=== PATIENT | female | born 1980 | race Caucasian/White ===

== ENCOUNTER 2017-03-01 08:22 | Emergency (ER) | payer MEDICAID, SELFPAY ==
[2017-03-01 08:23] VITALS: BP 123/95; PULSE 78; RESP 16; TEMP 36.8; O2SAT 99; BMI 37.8
--- NOTE | 2017-03-01 08:39 | RAD_ITS ---
STUDY: X-RAY CHEST REASON FOR EXAM: Female, 37 years old. Acute onset of chest pain. TECHNIQUE: Single AP portable view of the chest. COMPARISON: Comparison is made with prior study dated November 28, 2016. FINDINGS: EKG electrodes are seen. The lungs are clear and expanded. There is no demonstrated pleural abnormality. Normal size heart. Normal mediastinum and leslie. Normal visualized pulmonary arteries. Normal visualized aortic arch and descending thoracic aorta. Normal visualized thoracic spine. Normal visualized ribs, clavicles, and shoulders. There is no demonstrated abnormality of the visualized soft tissue structures of the upper abdomen. RAD/Chest 1 View (Portable) IMPRESSION: Normal x-ray examination of the chest. Electronically Signed: Kishor Woods MD at 9:17 EST Tel [phone], Service support ,
--- NOTE | 2017-03-01 08:39 | EKG12_ITS ---
Test Reason : CP Blood Pressure : / mmHG Vent. Rate : 082 BPM Atrial Rate : 082 BPM P-R Int : 156 ms QRS Dur : 086 ms QT Int : 378 ms P-R-T Axes : 028 010 019 degrees QTc Int : 441 ms Normal sinus rhythm Normal ECG Confirmed by YVES EUBANKS ([id number]), medical editor BARBIE ARCOS ([id number]) on 03/06/2017 10:10:35 AM Referred By: SURI/MAIKOL Confirmed By:YVES EUBANKS
[2017-03-01 09:00] LABS: Absolute Lymphocyte Count 2.99 X10^3/ul (0.83-4.51); Absolute Neutrophil Count 4.7 X10^3/uL (2.0-7.7); Basophil# 0.05 X10^3/uL; Basophil% 0.6 % (0-1); Eosinophil# 0.37 X10^3/uL; Eosinophils% 4.2 % (0-5); Hematocrit 43.7 % (37-47); Lymphocyte # 2.99 X10^3/ul (4.0); Lymphocyte % 34.3 % (19-41); Mean Corpuscular Volume 90.7 fL (81-99); Mean Platelet Vol. 10.4 fl (6.2-12.0); Monocyte# 0.55 X10^3/uL; Monocyte% 6.3 % (0-10); Neutrophil # 4.73 X10^3/uL (2.7-7.7); Neutrophil % 54.3 % (47-70); Platelet Count 273 K/mm3 (150-450); RBC Distribution Width CV 13.6 % (11.6-14.6); RBC Distribution Width SD 44.6 fl (35.1-43.9); Red Blood Count 4.82 M/mm3 (4.2-5.4); White Blood Count 8.7 K/mm3 (4.4-11.0)
[2017-03-01 09:01] LABS: POSITIVE COUNT NO; POSITIVE DIFFERENTIAL NO; POSITIVE MORPHOLOGY NO
[2017-03-01 09:11] LABS: Anion Gap 5 (5-15); BUN 10 mg/dL (7-18); BUN/Creat Ratio 13.1 RATIO (10-20); Calcium,Total 8.4 mg/dL (8.5-10.1); Chloride 103 mmol/L (98-107); Creatinine, Serum 0.76 mg/dL (0.55-1.02); EST Glomerular Filtration Rate 92 mL/min (>60); Est Glom Filt Rate - Afr Amer 111 mL/min (>60); Estimated Creatinine Clearance 89.22 ml/min; Glucose 85 mg/dL (70-110); Potassium 3.9 mmol/L (3.5-5.1); Sodium Level 137 mmol/L (136-145)
[2017-03-01 09:28] LABS: D-Dimer Quantitative (DVT/PE) < 0.27 FEU/ug/m (0.27-0.49)
--- NOTE | 2017-03-01 09:55 | ED.DCSUM_ITS ---
- ER Visit Summary Date of Service: 03/01/17 Chief Complaint: [Chest pain] History of Present Illness: The patient is a 37 F [presents with chest pain that started around 6:15 AM. Patient states that she was getting ready for work when the discomfort started. Patient describes a heaviness in her chest and then intermittent sharp stabbing pain that lasts a couple seconds and then returns. Patient went to work but continued to have the symptoms so she presented to the emergency department. Patient currently rates her pain a 3 out of 10. Patient states the pain is worse with deep breath and movement. She denies any injury or lifting. Patient did use her inhaler prior to pain starting states that is atypical activity that she does most mornings due to her history of asthma.] Physical Examination: [HEENT-PERRLA, EOMI. Cranial nerves II through XII grossly intact. TMs clear. Mucous membranes moist. No adenopathy. Cardiovascular-regular rate and rhythm without murmur or ectopy Lungs-clear to auscultation, chest wall stable without crepitus or subcu emphysema. Patient does have tenderness to palpation over left anterior chest wall that seems to reproduce her pain. Abdomen-normoactive bowel sounds, soft, nontender, no rebound or rigidity, no peritoneal signs. Extremities-intact ?4, normal range of motion, normal pulses, atraumatic] Test Results: EKG obtained on arrival showed a sinus rhythm with a ventricular rate of 82 bpm with no acute ST segment changes. CBC with differential was normal. Chemistries were normal. D-dimer was normal less than 0.27. Troponin was less than 0.02. And her chest x-ray was normal. [] Emergency Department Course and Treatment: [Patient received a dose of Toradol in the emergency department and she is resting comfortably.] Treatment Plan: [Patient will be given a prescription for Naprosyn and advised to follow-up with her primary care physician within next 5-7 days.] Disposition: [Discharged to home in stable condition. Patient advised to return if worsening pain, fever, hemoptysis, increasing shortness of breath, or condition should worsen in any way.] Impression: [Chest wall pain] This note was generated with [employer] dictation software. It may contain incorrect words, spelling, and punctuation that were not noted in review of the chart prior to signing ED Disposition - Plan for ED Patient: Chief Complaint: Chest Pain Referrals: Care Physician,No Primary [Primary Care Provider] -
--- NOTE | 2017-03-01 09:55 | ED.DEP ---
ED Disposition - Plan for ED Patient: Chief Complaint: Chest Pain Instructions: ED Strain Chest Wall, ED Chest Pain Costochondritis Prescriptions: Naproxen [Naprosyn] 500 mg PO BID PRN #20 tab Referrals: Care Physician,No Primary [Primary Care Provider] - 5-7 Days
[2017-03-01] MEDS: Ketorolac 30 MG/ML Syringe IV (10:40)
[2017-03-01] MEDS: 0.9% Normal Saline 1,000 ML 150 ML IV (10:41)
[2017-03-01 11:22] VITALS: BP 111/76; PULSE 82; RESP 26
== END 2017-03-01 11:23 | disposition home or self-care (01) ==
PROVIDERS: Emergency Provider Emergency Medicine
DX: R07.89 Other chest pain (principal); J45.909 Unspecified asthma, uncomplicated
CPT/HCPCS: 71045; 80048; 84484; 85025; 85379; 93005; 96361; 96374; 99285; J7030; A4216

== ENCOUNTER 2017-05-31 09:22 | Emergency (ER) | payer MEDICAID, SELFPAY ==
[2017-05-31 09:23] VITALS: BP 150/89; PULSE 84; RESP 20; TEMP 37.2; BMI 37.8
--- NOTE | 2017-05-31 09:35 | CT_ITS ---
STUDY: CT ABDOMEN AND PELVIS WITH CONTRAST REASON FOR EXAM: Female, 37 years old. Right lower quadrant pain. Previous cholecystectomy and tubal ligation. History of asthma. RADIATION DOSAGE (If Supplied By Facility): CTDIvol = ( 20.39 ) mGy, DLP = ( 1254.43 ) mGycm TECHNIQUE: Transaxial images were obtained from the dome of the diaphragm to the symphysis pubis without oral contrast. 100ml ml of Isovue 300 contrast was administered. Sagittal and coronal images were reconstructed. Individualized dose optimization techniques were used for this CT. COMPARISON: March 05, 2015. FINDINGS: The visualized lung bases are unremarkable. The visualized portions of the heart are within normal limits. There is mild diffuse decreased hepatic attenuation without CT evident mass or cyst. This finding is most compatible with hepatic steatosis. The patient is status post cholecystectomy. There is approximately 1 cm dilatation of the common bile duct seen on sequence 2, image 37. No CT evident etiology. Again seen is mild splenomegaly without splenic mass or cyst. Normal pancreas. Normal bilateral adrenal glands. Normal right kidney. Normal left kidney. No hydroureter. No ureteral calculi. Normal visualized stomach. Normal small intestine. Normal colon. The appendix is visualized and appears normal. Normal abdominal aorta. Normal inferior vena cava. Normal retroperitoneum. Normal urinary bladder. Normal abdominal wall. Normal osseous structures. CT/Abdomen/Pelvis WITH Contrast IMPRESSION: Hepatic steatosis. Status post cholecystectomy with approximately 1 cm dilatation of the common bile duct. No CT evident etiology. This finding is commonly seen in postcholecystectomy patients. Stable mild splenomegaly. No diverticulitis. No appendicitis. No hydroureter. No hydronephrosis. No ureteral calculi. No renal calculi. No evident obstruction or free air. No mass or mass effect. Electronically Signed: Ankur Diaz MD at 11:33 EDT , Service support ,
[2017-05-31] MEDS: 0.9% Normal Saline 1,000 ML 1000 ML IV (09:54)
[2017-05-31] MEDS: proMETHazine 25 MG/ML Syringe 6.25 MG IV (09:54)
--- NOTE | 2017-05-31 09:54 | ED.DCSUM_ITS ---
- ER Visit Summary Date of Service: 05/31/17 Chief Complaint: Abdominal pain History of Present Illness: The patient is a [address] Sandoval. She reports that she has been nauseated and vomiting for the past 2 days. She reports about approximately 10 times. No blood or emesis. No diarrhea. Her last bowel was yesterday. Patient reports that she had the onset of right lower quadrant abdominal pain yesterday after an episode of vomiting. She describes pain as throbbing. 6 out of 10 at worst and 410 currently. Is worsened by movement and relieved by remaining still. Physical Examination: Vitals: Stable. Afebrile. General: Well-nourished and well-developed. Head: Normocephalic atraumatic. Neck: Supple, no lymphadenopathy. No JVD. Nontender. Cardiovascular: Regular rate and rhythm. No murmurs. Respiratory: No respiratory distress. Clear to auscultation bilaterally. Abdominal: Soft, moderate tenderness palpation in the right lower quadrant, nondistended, normal bowel sounds. No guarding, rebound, or peritoneal signs. Back: Nontender. Extremities: Nontender, no edema. Skin: Normal color, no rash. Neurologic: Alert and oriented ?3. Cranial nerves II through XII are intact. Normal strength and sensation. Psych: Normal affect. Test Results: CBC is remarkable for eosinophils of 6. Chem-7 is normal. test is negative. Dip UA at urgent care was negative. CT abdomen pelvis shows normal appendix and no acute disease. Emergency Department Course and Treatment: Patient is treated with morphine and Phenergan IV. She is resting comfortably. Treatment Plan: Patient will be discharged with Zofran. Instructed to follow- up with Dr. Barnard in 1-2 days if not improving. Return to the emergency department for any worsening symptoms. Disposition: To home in improved and stable condition. Impression: 1. Vomiting. 2. Abdominal pain. This note was generated with [employer] dictation software. It may contain incorrect words, spelling, and punctuation that were not noted in review of the chart prior to signing ED Disposition - Plan for ED Patient: Disposition: Home or Assisted Living Chief Complaint: Abd Pain Instructions: ED Nausea Vomiting Prescriptions: Ondansetron [Zofran Odt] 4 mg PO Q8H PRN PRN #10 tablet PRN Reason: Nausea Referrals: David Sandoval MD [STAFF PHYSICIAN] - 1-2 Days if not improving
[2017-05-31] MEDS: Morphine 4 MG/ML Syringe IV (09:55)
[2017-05-31 10:05] LABS: Absolute Lymphocyte Count 2.66 X10^3/ul (0.83-4.51); Absolute Neutrophil Count 3.9 X10^3/uL (2.0-7.7); Basophil# 0.05 X10^3/uL; Basophil% 0.7 % (0-1); Eosinophil# 0.42 X10^3/uL; Eosinophils% 5.6 % (0-5); Lymphocyte # 2.66 X10^3/ul (4.0); Lymphocyte % 35.5 % (19-41); Mean Corp Hgb Conc 34.1 g/gl (32-36); Mean Corpuscular Hgb 29.6 pg (27.0-32.0); Mean Corpuscular Volume 86.8 fL (81-99); Mean Platelet Vol. 11.3 fl (6.2-12.0); Monocyte# 0.45 X10^3/uL; Neutrophil # 3.89 X10^3/uL (2.7-7.7); Neutrophil % 51.9 % (47-70); POSITIVE COUNT NO; POSITIVE DIFFERENTIAL NO; POSITIVE MORPHOLOGY NO; Platelet Count 243 K/mm3 (150-450); RBC Distribution Width CV 13.1 % (11.6-14.6); RBC Distribution Width SD 41.2 fl (35.1-43.9); Red Blood Count 5.07 M/mm3 (4.2-5.4); White Blood Count 7.5 K/mm3 (4.4-11.0)
[2017-05-31 10:16] LABS: Anion Gap 6 (5-15); BUN 7 mg/dL (7-18); BUN/Creat Ratio 8.7 RATIO (10-20); Chloride 106 mmol/L (98-107); EST Glomerular Filtration Rate 86 mL/min (>60); Est Glom Filt Rate - Afr Amer 104 mL/min (>60); Estimated Creatinine Clearance 84.76 ml/min; Glucose 94 mg/dL (74-106); Potassium 3.9 mmol/L (3.5-5.1); Sodium Level 140 mmol/L (136-145)
[2017-05-31 10:33] LABS: Pregnancy, Serum, hCG Quali. NEGATIVE Negative (0-9 Nonpreg)
--- NOTE | 2017-05-31 10:40 | ED.RN ---
PT STATES SHE IS UNAB;E TO DRINK THE CONTRAST BECUAE IT MAKES HER VOMIT EVEN AFTER THE PHENERGAN. DR MCCORD AWARE AND PT SENT TO CT WITHOUT DRINKING.
[2017-05-31 11:51] VITALS: BP 108/59; PULSE 54; RESP 16; O2SAT 98
== END 2017-05-31 11:52 | disposition home or self-care (01) ==
PROVIDERS: Emergency Provider Emergency Medicine
DX: R10.31 Right lower quadrant pain (principal); J45.909 Unspecified asthma, uncomplicated; R11.2 Nausea with vomiting, unspecified
CPT/HCPCS: 74177; 80048; 84703; 85025; 99283; J7030; Q9967

== ENCOUNTER 2017-09-26 05:49 | Day surgery (SDC) | payer MEDICAID, SELFPAY ==
[2017-09-12 14:21] VITALS: BP 126/72; PULSE 79; RESP 16; TEMP 36.7; O2SAT 100; BMI 38.7
[2017-09-12 16:37] LABS: HIV - WCH Non-Reactive (Nonreactive)
[2017-09-13 09:08] LABS: HEPATITIS B SURFACE AG Negative (Negative); Hepatitis A AB, Total Negative (Negative); Hepatitis A IgM Antibody Negative (Negative); Hepatitis B Core AB IgM Negative (Negative); Hepatitis B Core Ab Total Negative (Negative); Hepatitis C Ab 0.1 s/co ratio (0.0-0.9)
[2017-09-13 11:10] LABS: Hep B Surface Antibodies Non Reactive (.)
[2017-09-26] VITALS (14 sets, daily range): BP systolic 111–134; BP diastolic 61–95; PULSE 77–107; RESP 12–18; TEMP 36.3–36.9; O2SAT 89–99; BMI 38.7
[2017-09-26] MEDS: Cefazolin 2 GM in 0.9% Normal Saline 100 ML IV (07:00)
--- NOTE | 2017-09-26 07:34 | PCM.DC.ORTHO ---
Discharge Diet: No Restrictions - remove dressing and apply bandaids to incision sites, may get incision wet after 4 days, nwb right leg, follow up in 2 weeks, ankle pumps, ice and elevate toes above nose, call with concerns Discharge Activity: May Not Drive May shower in (days): 1 Ice area for (Minutes): 20 - Every hour while awake. Weight Bearing Status: Weight bearing as tolerated Keep extremity elevated above heart level: Operative Extremity Call your doctor if your incision/area has: Continuous Slow Oozing, Sudden Increased Bleeding, Increased Pain/ Swelling, Increased Redness, Foul Smelling Discharge Call your doctor if you observe: Fever of 101 or Higher, Coldness, Increased Pain, Numbness or Tingling, Change in Color, Calf discomfort Allergies/Adverse Reactions: Allergies Penicillins Allergy (Verified 09/12/17 14:19) Hives Medications to take at Discharge Albuterol Sulfate [Ventolin Hfa] 18 gm IH PRN PRN 03/01/17 Mometasone Furoate [Asmanex Hfa] 2 puff INHALATION DAILY 03/01/17 Ibuprofen 800 mg PO Q4H PRN PRN 09/12/17 Hydrocodone Bitart/Apap 5-325 [[place] 5MG-325MG] 1 - 2 tablet PO Q6H PRN PRN 5 Days #40 tablet 09/26/17 The following prescriptions were given: Hydrocodone Bitart/Apap 5-325 [[place] 5MG-325MG] 1 - 2 tablet PO Q6H PRN PRN 5 Days #40 tablet PRN Reason: Pain Primary Care Physician: David Sandoval MD [Primary Care Provider] - Test Results: Test results from this visit will be discussed in further detail at your follow-up appointment, if applicable. Please Follow Up With: Sheron Montelongo, DO - [phone]
--- NOTE | 2017-09-26 07:37 | OP.PCM_ITS ---
Report of Operation Date of Procedure: 09/26/17 Pre-Operative Diagnosis: right knee osteoarthritis, patellofemoral chondromalacia, medial and lateral femoral condyle cartilage defects, partial lateral meniscus tear Surgery/Procedure Performed:: sark, medial and lateral femoral condyle microfractures, patellofemoral chondroplasty, partial lateral meniscectomy, osteophyte debridement employment attorney: Cipriano Canela Type of Anesthesia:: General Anesthesiologist: Lobo Pastrana Estimated Blood Loss (mL): min Fluids Replaced: 1000ml lr Description of Procedure: Preop note Patient is a 37-year-old female well-known to us in clinic. Patient is continued right knee pain despite conservative and even surgical treatment. Patient failed to get cartilage transplant approved by insurance however due to the fact that she is having increasing pain both medial and lateral and having failed conservative treatment MRI confirms questionable findings of OCD lesions as well as patellofemoral chondroplasty and some degenerative changes of her joints. Risks benefits and alternatives surgery discussed with patient. Risks including but not limited to low blood loss, blood clot, infection, neurovascular injury, failure procedure, loss of life and loss of limb. Patient is aware like proceed with right knee arthroscopy repair is indicated. Operative note Patient seen and examined preoperative holding area. Right knee was marked. Patient is brought to the operating room placed supine on the operating table. Signing, anesthesia, antibiotics were administered. The right leg was prepped and draped in usual sterile fashion around her upper thigh. Sign in was initiated. All bony prominence is well-padded SCDs placed on her contralateral limb. Marked out our portal placement anterior lateral anteromedial portal placement. The right leg was elevated exsanguinated tourniquet was raised her pressure of 250 torr. We used an 11 blade to create her anterior lateral portal. We began our diagnostic arthroscopy. The patellofemoral joint had grade 4 eburnated changes throughout the entire lateral facet of her patella as well as her entire lateral femoral condyle at the trochlear aspect. We moved to the medial joint line and created an anterior medial portal under direct visualization. There was a OCD lesion of the medial condyle that was articulating with the medial tibial plateau. We created anterior medial portal under direct visualization. We probed the unstable lesion. We measured it to be about 5 x 7 mm lesion. We then moved to the medial meniscus which was intact stable probing there is grade 2 fibrillated changes of the medial tibial plateau but there is a the rest of the medial femoral condyle cartilage was intact. The ACL and PCL were present within the notch. We then moved to the lateral joint line there is a 5 x 7 to more like 7-1/2-8 mm of the lesion of the lateral femoral condyle that was articulating with the lateral femoral condyle tibial plateau as well. We on both of these lesions we debrided back the calcified cartilage layer with a ring curette we then used microfracture picks to microfracture the area. We noted good blood flow and good bubbles from both of those ensuring that we had penetrated deep enough. We then moved to the patellofemoral joint she had extensive synovitis which was removed especially from the anterior medial joint line up into the recesses of the medial patella. There was a osteophyte off of the lateral aspect of the patella. This was gently debrided with a shaver and removed with hemostat. We did extensive patellofemoral chondroplasty of the knee is stable pieces as well as a synovectomy around the patella. We then irrigated the knee with a sterile saline the tourniquet was deflated for a total of working 48 minutes. Sterile dressings and a hinged brace locked in extension were applied. Patient tolerated procedure well there are no complication patient transferred to recovery room in stable condition. Please note that we also did inject just the portals with about 20 cc of quarter percent bupivacaine with epi. Operative postoperative note Hospital pharmacy has prescriptions as Nonweightbearing right leg 0-40? flexion Locked in extension at night and during ambulation Follow-up in 2 weeks for suture removal and initiation of PT Call with increased pain numbness feeling or further issues arise This note was generated with [employer] software. It may contain incorrect words, spelling, and punctuation that were not noted in checking the note before signing.
[2017-09-26 07:40] LABS: Amphetamine Urine VISTA NEGATIVE (<1000 ng/mL); Barbiturate Urine VISTA NEGATIVE (< 200 ng/mL); Benzodiazepine Urine VISTA NEGATIVE (< 200 ng/mL); Cocaine Urine VISTA NEGATIVE (< 300 ng/mL); Ecstacy Urine VISTA NEGATIVE (< 500 ng/mL); Methadone Urine VISTA NEGATIVE (< 300 ng/mL); PCP Urine VISTA NEGATIVE (< 25 ng/mL); THC Urine VISTA POSITIVE (< 50 ng/mL); Vista UDS pH Range 7
[2017-09-26] MEDS: Bupiv/Epi 0.5% Mpf 30 ML Vial (08:41)
[2017-09-26] MEDS: Mupirocin Ointment 22gm Tube 1 APPLIC (08:42)
[2017-09-26] MEDS: HYDROcodone Bitartrate/Apap 5/325 Tablet PO (11:18)
== END 2017-09-26 15:25 | disposition home or self-care (01) ==
LOC: SDC 05:50 → AC 05:51
PROVIDERS: Family Provider Family Medicine; PCP Family Medicine; Visit Provider Orthopaedic Surgery
PROC: (CPT 29870; principal; 2017-09-26 07:10)
DX: M17.11 Unilateral primary osteoarthritis, right knee (principal); M94.261 Chondromalacia, right knee; M67.51 Plica syndrome, right knee; J45.909 Unspecified asthma, uncomplicated; K21.9 Gastro-esophageal reflux disease without esophagitis; Z87.891 Personal history of nicotine dependence; S83.281D Other tear of lateral meniscus, current injury, right knee, subsequent encounter; X58.XXXD Exposure to other specified factors, subsequent encounter
CPT/HCPCS: 29879; 29881; 64450; 36415; 80307; 86703; 86704; 86705; 86706; 86708; 86709; 86803; 87340; J7120; J2405

== ENCOUNTER → 2017-11-05 10:11 | Outpatient (CLI) | payer MEDICAID, SELFPAY ==
--- NOTE | 2017-11-05 10:14 | RAD_ITS ---
STUDY: X-RAY - RIGHT KNEE REASON FOR EXAM: Female, 37 years old. Pain. Fall. TECHNIQUE: 3 view(s) of the knee. COMPARISON: 02/26/2016 FINDINGS: There is no evidence of fracture or dislocation. There are stable mild degenerative changes. There are no radiodense foreign bodies. RAD/Knee 4 or More Views IMPRESSION: No fracture or dislocation. Stable mild degenerative change. Electronically Signed: Jasper Cisneros, at 19:41 EDT Tel , Service support ,
== END ==
PROVIDERS: Family Provider Family Medicine; PCP Family Medicine; Referring Provider Physician Assistant; Visit Provider Physician Assistant
DX: M25.561 Pain in right knee (principal)
CPT/HCPCS: 73564

== ENCOUNTER 2017-12-13 17:00 | Outpatient (RCR) | payer MEDICAID, SELFPAY ==
--- NOTE | 2017-11-19 16:31 | HP.PTEVAL ---
Patient's Visit Information ANDER MCNEAL is a 37 year old F referred to Physical Therapy by PIERCE Toro with a diagnosis of R knee microfracture. Date of Evaluation: 11/19/17 Physical Therapist: Tushar Raines PT, - Visit Plan Frequency: 2-3x /Week Duration: 4-6 Weeks Plan: R knee stretching and strengthening, balance and proprio, core stab ex's, bike, and HEP - Subjective Subjective: DOS: 09/26/17. Pt reports she had micro fracture surgery at medial and lateral femoral chondyles. Pt reports this was the second surgery she had on her R knee, as the first surgerywas to repair meniscus that was torn. Pt reports she doesnt feel that much better at this time as compared to presurgery. No T or N in R LE with the exception of a spot on the R calf region. 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 Pt is on light tduty at this time. 3/10 at rest, 7/10 at worst (prolonged weightbearing activity) - Pain R knee Pain Intensity (Out of 10): 3 Pain Intensity Range: 7 - Objective Neuro: B LE sensation is WNL to light touch. B achilles reflex= 2+/3. Girth at joint line: B knees 40 cm. ROM: R knee 0-10-80, L knee 0-120 degrees. MMT: L LE 5/5 throughout. R knee flexion and ext 3-/5. Gait: Pt ambulates with lack of knee flexion during Eval. Minor limping noted. - Goals Goal 1:: Decrease R knee pain x 50% to aid with sleep Goal Time Frame: 4-6 Weeks Goal 2:: Increase R knee ROM x 30 degrees to aid with restoring a normalized gait pattern Goal Time Frame: 4-6 Weeks Goal 3:: Increase R knee strength x 1 grade to aid with stair negotiation Goal Time Frame: 4-6 Weeks Goal 4:: I with HEP Goal Time Frame: 4-6 Weeks - Rehabilitation Potential Physical Therapy Diagnosis: R knee pain, weakness, and limited ROM secondary to R knee microfx Rehabilitation Potential: Good - Anticipated Interventions Patient/Client Instruction: Educate patient on: Condition, Plan of Care For the Purpose of:: To facilitate caregiver knowledge Therapeutic Exercise to Include: Strength training, Endurance training, Flexibilty training, Gait and locomotor training, Dynamic Lumbar Stabilization For the Purpose of:: To decrease pain, To increase ROM, To improve muscle performance and motor function Cryotherapy (ice pack, ice massage): Yes For the Purpose of:: To decrease pain Thank you for the opportunity to evaluate your patient. For Medicare and Medicare HMO plans, please review the plan of care and approve it. It will need to be FAXED BACK to us at [phone] for Medicare purposes. Please let me know if there are questions or concerns regarding this plan of care. Physician Signature: Date:
--- NOTE | 2018-02-20 08:30 | HP.PT.NRP ---
HP - Discharge Summary (1) - Patient Information ANDER MCNEAL was seen in my office for initial evaluation on 11/19/17. The following Plan of Care was established for this patient: Initial Frequency: 2-3x /Week Initial Duration: 4-6 Weeks - Anticipated Interventions Patient/Client Instruction: Educate patient on: Condition, Plan of Care For the Purpose of:: To facilitate caregiver knowledge Therapeutic Exercise to Include: Strength training, Endurance training, Flexibilty training, Gait and locomotor training, Dynamic Lumbar Stabilization For the Purpose of:: To decrease pain, To increase ROM, To improve muscle performance and motor function Cryotherapy (ice pack, ice massage): Yes For the Purpose of:: To decrease pain This patient was last seen in our office . Pertinent comments regarding their Physical therapy will appear below: Pt was last treated for her R knee pain on 12/13/17. Pt has not returned since that date, and is therefore discontinued at this time. At this point I will be discontinuing this patient from physical therapy. I would be happy to see this patient again in the future if found appropriate by the physician. Thank you! Tushar Raines, PT, ATC
== END 2017-12-13 19:00 | disposition home or self-care (01) ==
LOC: PT 17:00
PROVIDERS: Family Provider Family Medicine; PCP Family Medicine; Referring Provider Physician Assistant; Visit Provider Physician Assistant
DX: Z98.890 Other specified postprocedural states (principal)
CPT/HCPCS: 97014; 97110; 97162; G0283

== ENCOUNTER 2018-03-22 08:43 | Emergency (ER) | payer MEDICAID, SELFPAY ==
[2018-03-22 08:44] VITALS: BP 125/93; PULSE 82; RESP 18; TEMP 36.1; O2SAT 99; BMI 36.1
--- NOTE | 2018-03-22 09:05 | RAD_ITS ---
STUDY: X-RAY CHEST REASON FOR EXAM: Female, 38 years old. Cough. Fever. Weakness. TECHNIQUE: Frontal and lateral views of the chest. COMPARISON: March 01, 2017. FINDINGS: There is artifact from jewelry. The lungs are clear and expanded. There is no demonstrated pleural abnormality. Normal size heart. Normal mediastinum and leslie. Normal visualized pulmonary arteries. Normal visualized aortic arch and descending thoracic aorta. Normal visualized thoracic spine. Normal visualized ribs, clavicles, and shoulders. There is no demonstrated abnormality of the visualized soft tissue structures of the upper abdomen. RAD/Chest PA and Lateral IMPRESSION: Normal x-ray examination of the chest. Electronically Signed: Flavio Nixon MD at 10:30 EST , Service support ,
[2018-03-22 09:19] VITALS: PULSE 75; RESP 18
[2018-03-22] MEDS: Ipratropium/Albuterol Sulfate 3 ML AMPUL.NEB INHALATION (09:19)
[2018-03-22 09:46] VITALS: BP 125/109; PULSE 71; RESP 20; TEMP 36.6; O2SAT 99
--- NOTE | 2018-03-22 10:40 | ED.DCSUM_ITS ---
- ER Visit Summary Date of Service: 03/22/18 Chief Complaint: [Cough] History of Present Illness: The patient is a 38 F [presents the emergency department complaint of a cough that started 3 weeks ago. Patient seen at urgent care initially and she was started on doxycycline and prednisone. Patient states that she finished her doxycycline and prednisone yesterday. Patient continues to cough up yellow and green sputum. Patient also with history of asthma. Patient having a hard time sleeping at night complains of soreness in her ribs from all the coughing. She denies any fevers. She was sent in from work today to be evaluated.] Physical Examination: [HEENT-PERRLA, EOMI. Cranial nerves II through XII grossly intact. TMs clear. Mucous membranes moist. No adenopathy. Cardiovascular-regular rate and rhythm without murmur or ectopy Lungs-good aeration bilaterally. Minimal wheezing noted. No accessory muscle use or retractions. Abdomen-normoactive bowel sounds, soft, nontender, no rebound or rigidity, no peritoneal signs. Extremities-intact ?4, normal range of motion, normal pulses, atraumatic] Test Results: [Chest x-ray obtained was normal.] Emergency Department Course and Treatment: [Patient was given a DuoNeb aerosol.] Treatment Plan: [At this point I do not feel further antibiotics are indicated. I will treat patient with 3 more days of prednisone and write her for Tessalon Perles as well as [place] for pain. 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 Patient advised to return if increasing shortness of breath or condition should worsen anyway.] Impression: [Asthmatic bronchitis] This note was generated with [employer] dictation software. It may contain incorrect words, spelling, and punctuation that were not noted in review of the chart prior to signing ED Disposition - Plan for ED Patient: Referrals: David Sandoval MD [Primary Care Provider] -
--- NOTE | 2018-03-22 10:42 | DCINST.ED_ITS ---
ED Disposition - Plan for ED Patient: Instructions: ED Bronchitis Asthmatic Prescriptions: Hydrocodone Bitart/Apap 5-325 [[place] 5MG-325MG] 1 tab PO Q4H PRN PRN 2 Days #10 tab PRN Reason: Pain Benzonatate [Tessalon Perle] 200 mg PO TID PRN PRN #20 cap PRN Reason: Cough Prednisone [Deltasone] 20 mg PO BID #6 tab Referrals: David Sandoval MD [Primary Care Provider] - 3-5 Days Additional Instructions: see your truck sales manager
[2018-03-22 10:46] VITALS: BP 102/55; O2SAT 100
== END 2018-03-22 10:56 | disposition home or self-care (01) ==
LOC: ED 09:50
PROVIDERS: Emergency Provider Emergency Medicine; Family Provider Family Medicine; PCP Family Medicine
DX: J45.909 Unspecified asthma, uncomplicated (principal)
CPT/HCPCS: 71046; 94640; 99282

== ENCOUNTER 2018-10-09 17:42 | Emergency (ER) | payer MEDICAID, SELFPAY ==
[2018-10-09 17:43] VITALS: BP 140/88; PULSE 90; RESP 14; TEMP 37; O2SAT 100; BMI 38.9
--- NOTE | 2018-10-09 18:08 | CT_ITS ---
STUDY: CT CERVICAL SPINE WITHOUT CONTRAST REASON FOR EXAM: Female, 38 years old. Trauma RADIATION DOSAGE (If Supplied By Facility): CTDIvol = ( 30.20 ) mGy, DLP = ( 737.42 ) mGycm TECHNIQUE: High resolution transaxial imaging was performed without contrast material. Sagittal and coronal images were reconstructed. Individualized dose optimization techniques were used for this CT. COMPARISON: None available. FINDINGS: There is no evidence of fracture or dislocation in the cervical spine. The dens is intact. Alignment is normal. The vertebral body heights and disc spaces are well-maintained. There are no significant degenerative changes. The visualized paraspinal soft tissues are within normal limits. CT/Spine Cervical without Contras IMPRESSION: No fracture or dislocation in the cervical spine. No significant degenerative changes. Electronically Signed: Jasper Cisneros, at 18:55 EDT Tel , Service support ,
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
[2018-10-09] MEDS: Ondansetron 4 MG/2 ML Vial IV (18:11)
[2018-10-09] MEDS: Morphine 4 MG/ML Syringe IV (18:13)
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
[2018-10-09] MEDS: Diphth,Pertuss(Acell),Tet Vac 0.5 ML Vial IM (18:43)
[2018-10-09 19:03] VITALS: BP 128/50; PULSE 87; RESP 13; O2SAT 100
[2018-10-09 20:09] VITALS: BP 130/79; PULSE 68; RESP 18; O2SAT 99
[2018-10-09] MEDS: Ketorolac 30 MG/ML Syringe IV (20:10)
[2018-10-09 21:00] VITALS: BP 130/83; PULSE 80; RESP 14; O2SAT 98
[2018-10-09 21:07] VITALS: BP 130/83; PULSE 75; RESP 13
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
[2018-10-09 21:31] VITALS: BP 112/72
== END 2018-10-09 21:34 | disposition home or self-care (01) ==
LOC: ED 18:54
PROVIDERS: Emergency Provider Emergency Medicine; Family Provider Family Medicine; PCP Family Medicine
DX: S09.90XA Unspecified injury of head, initial encounter (principal); S16.1XXA Strain of muscle, fascia and tendon at neck level, initial encounter; S46.912A Strain of unspecified muscle, fascia and tendon at shoulder and upper arm level, left arm, initial encounter; S40.212A Abrasion of left shoulder, initial encounter; S80.811A Abrasion, right lower leg, initial encounter; V49.9XXA Car occupant (driver) (passenger) injured in unspecified traffic accident, initial encounter; Y93.9 Activity, unspecified; Y99.9 Unspecified external cause status; Y92.410 Unspecified street and highway as the place of occurrence of the external cause
CPT/HCPCS: 70450; 71260; 72125; 73030; 74177; 90715; 96374; 96375; 99285; Q9967; A4216; J2405

== ENCOUNTER 2018-12-17 07:47 | Emergency (ER) | payer SELFPAY ==
[2018-12-17 07:48] VITALS: BP 141/71; PULSE 99; RESP 16; TEMP 36.7; O2SAT 99; BMI 34.9
[2018-12-17 07:59] VITALS: PULSE 99; TEMP 36.7
--- NOTE | 2018-12-17 08:03 | ED.VIS.URI ---
History of Present Illness Chief Complaint: Cough Informant: Patient Onset: Weeks - 2+ Context: Gradual Onset Timing: Continuous Quality: prod cough w/ green/yellow thick sputum Location: chest Current Severity: Severe Maximum Severity: Severe Worsened by: Not Worsened By: Swallowing, Eating Solids, Drinking Liquids Relieved by: - - albuterol. not by prednisone or Tessalon Perles. Associated Symptoms: Nasal Congestion, Headache, Shortness of Breath - wheezing, - - ears popping. sweats/subj fevers.. Negative for: Nausea, Vomiting, Diarrhea, Hemoptysis Narrative: Patient works in a long-term. She has a history of asthma and saw her doctor early on in this illness, was prescribed prednisone for a week or less, no taper, she just finished it recently, and states it did not help her wheezing at all. She has had no improvement. No edema, orthopnea, no rash. No neck stiffness or confusion or neurologic symptoms. Mostly nonproductive cough but occasionally productive of green/yellow sputum, no blood. She has been hoarse of voice. - Past Medical History (1) Asthma Status: Chronic Past Medical History - Allergies and Home Meds Allergies/Adverse Reactions: Allergies Penicillins Allergy (Verified 12/17/18 07:47) [facility] Primary Care Physician: David Sandoval MD [Primary Care Provider] - Lives: With Family Smoking Status: Former smoker Review of Systems General: Reports: Fever, Malaise, Subjective, Sweats. Denies: Chills Eyes: Denies: Visual changes - bilaterally, Diplopia ENT: Reports: Rhinorrhea. Denies: Sore throat Cardiovascular: Reports: Chest pain - Sore from coughing. Denies: Palpitations Respiratory: Reports: Dyspnea, Cough, Sputum. Denies: Dyspnea on exertion, Orthopnea Gastrointestinal: Denies: Abdominal pain, Nausea, Vomiting, Diarrhea, Melena, Hematochezia Genitourinary: Denies: Dysuria, Hematuria, Frequency Musculoskeletal: Denies: Back pain, Swelling, Extremity Pain Skin: Denies: Rash, Wounds Neurological: Reports: Headache. Denies: Weakness, Numbness Physical Exam Vital Signs/Narrative: Vital Signs Temp Pulse Resp BP Pulse Ox 12/17/18 07:59 98.0 F 99 12/17/18 07:48 98.0 F 99 16 141/71 H 99 Inital Vital Signs reviewed: Yes General: Well nourished, Well developed Head: Normocephalic, Atraumatic Eyes: Perrl, EOMI, - - Normal conjunctivae Ears: Normal external canal, TM's clear Nose: Normal Inspection, No Rhinorrhea, Congestion. Negative for: Purulent Drainage Neck: Supple, Nontender, No Lymphadenopathy, No Meningismus Cardiovascular: Regular rate, Regular rhythm, No murmurs Respiratory: No distress, Chest nontender, Wheezing - Slight expiratory. Frequent bronchospasm., Chest tenderness - Mild diffuse. Negative for: Rales, Rhonchi Back: Nontender, Normal Inspection Extremities: Nontender, No edema Skin: Normal color, No rash, No Trauma Neurological: Alert, Oriented x3, Cranial nerves II-XII grossly intact, Normal Strength, Normal Sensation, Normal Gait Psychological: Normal affect, Normal Mood Diagnostic/Tx/Re-eval - Medical Decision Making Vital signs are normal. She has no auscultatory sounds of pneumonia. Suspect this is viral bronchitis as she is actively hoarse voice without stridor. However given that she has not improved at all in the past 2-3 weeks, I do not think antibiotics are unreasonable to cover for atypicals. Given all of this, along with the fact that her wheezing has not been helped by prednisone, I really suspect she has a viral etiology and she will probably have to ride this out, treating her symptoms with albuterol which she has been doing at home with her rescue inhaler. Since prednisone did not help but do not think prescribing more will be of benefit. She wants an antibiotic and I think that is reasonable. We discussed the risks and side effects and she accepts that. We will also give her a prescription for Robitussin-AC. ED Disposition - Plan for ED Patient: Disposition: Home or Assisted Living Diagnosis: Acute wheezy bronchitis Instructions: BRONCHITIS with Wheezing (Adult) Prescriptions: Guaifenesin/Codeine [Robitussin AC] 10 ml PO Q6H PRN PRN #4 oz PRN Reason: Cough Transmission Status: Sent to [facility] #30 Azithromycin [Zithromax Z-Eduardo] 250 mg PO UD 5 Days #1 box Transmission Status: Pending to [facility] #30 Referrals: Dvaid Sandoval MD [Primary Care Provider] - 1 Week if not improving
[2018-12-17 08:10] VITALS: PULSE 97; RESP 18
[2018-12-17] MEDS: Ipratropium/Albuterol Sulfate 3 ML AMPUL.NEB INHALATION (08:10)
== END 2018-12-17 08:40 | disposition home or self-care (01) ==
PROVIDERS: Emergency Provider Emergency Medicine; Family Provider Family Medicine; PCP Family Medicine
DX: J20.9 Acute bronchitis, unspecified (principal); Z87.891 Personal history of nicotine dependence; Z88.0 Allergy status to penicillin; J45.909 Unspecified asthma, uncomplicated
CPT/HCPCS: 94640; 99282

== ENCOUNTER 2019-04-03 01:58 | Emergency (ER) | payer SELFPAY ==
[2019-04-03 01:59] VITALS: BP 123/63; PULSE 88; RESP 18; TEMP 36.4; O2SAT 99; BMI 34.3
--- NOTE | 2019-04-03 02:10 | ED.VIS.GEN ---
History of Present Illness Chief Complaint: Back Informant: Patient Narrative: Patient stated that the last couple hours she is had worsening pain in her right lower back with radiation into her right hip. Is a sharp pain. Worse by movement. Relieved with rest. She took some Tylenol with minimal relief. Patient stated she has been moving and doing a lot of heavy lifting over the last several days. She is unsure if she aggravated something in her back. No previous back injury or pain like this in the past. Denies any loss of bowel or bladder function. No fevers or chills. Current severity is moderate to severe. - Past Medical History (1) Asthma Status: Chronic Past Medical History - Allergies and Home Meds Allergies/Adverse Reactions: Allergies Penicillins Allergy (Verified 12/17/18 07:47) [facility] Primary Care Physician: David Sandoval MD [Primary Care Provider] - Prior records reviewed: Yes Past Medical History: - - Asthma Surgical History: noncontributory Lives: With Family Smoking Status: Former smoker Alcohol: None Drugs: None Review of Systems General: Denies: Chills, Fever, Sweats Eyes: Denies: Visual changes - bilaterally, Diplopia ENT: Denies: Rhinorrhea, Sore throat Cardiovascular: Denies: Chest pain, Palpitations Respiratory: Denies: Dyspnea, Cough, Dyspnea on exertion Gastrointestinal: Denies: Abdominal pain, Nausea, Vomiting, Diarrhea, Melena, Hematochezia Genitourinary: Denies: Dysuria, Hematuria, Frequency Musculoskeletal: Reports: Back pain. Denies: Extremity Pain Skin: Denies: Rash, Wounds Neurological: Denies: Headache, Weakness, Numbness Physical Exam Vital Signs/Narrative: Vital Signs Temp Pulse Resp BP Pulse Ox 04/03/19 01:59 97.6 F L 88 18 123/63 H 99 General: Well nourished, Well developed, No Acute Distress Head: Normocephalic, Atraumatic Eyes: Perrl, EOMI ENT: Moist mucous membranes, No rhinorrhea Neck: Supple, Nontender Cardiovascular: Regular rate, Regular rhythm, No murmurs Respiratory: No distress, CTA bilaterally, Chest nontender Abdomen: Soft, Nontender, Nondistended, Normal bowel sounds Back: Normal Inspection, - - Derek in the right paraspinal back with decreased range of motion all hu secondary to pain. Positive straight leg raise at 30 degrees.. Negative for: Nontender, CVA tenderness, Spinal tenderness Extremities: Nontender, No edema Skin: Normal color, No rash Neurological: Alert, Oriented x3, Cranial nerves II-XII grossly intact, Normal Strength, Normal Sensation Psychological: Normal affect, Normal Mood Diagnostic/Tx/Re-eval - Medical Decision Making I feel the patient likely has a back strain from heavy lifting this week. She likely has a radiculopathy from this. Given injection of morphine and Toradol and will be given meloxicam for home. She will rest and ice. Patient may have a herniated disc however I feel this is less likely than a muscle strain. She will follow-up as an outpatient. I do not feel she needs imaging. ED Disposition - Plan for ED Patient: Disposition: Home or Assisted Living Diagnosis: Back pain of lumbosacral region with sciatica Instructions: Back Sprain/Strain Prescriptions: Meloxicam 15 mg PO DAILY #30 tab Prescription Printed Referrals: David Sandoval MD [Primary Care Provider] -
[2019-04-03] MEDS: morphine 8 MG/ML Syringe IM (02:14)
[2019-04-03] MEDS: Ketorolac 30 MG/ML Syringe IM (02:15)
[2019-04-03 02:32] VITALS: PULSE 90; RESP 16; O2SAT 98
== END 2019-04-03 02:33 | disposition home or self-care (01) ==
PROVIDERS: Emergency Provider Emergency Medicine; PCP Family Medicine
DX: M54.40 Lumbago with sciatica, unspecified side (principal); J45.909 Unspecified asthma, uncomplicated; Z87.891 Personal history of nicotine dependence; Z88.0 Allergy status to penicillin
CPT/HCPCS: 96372; 99282

== ENCOUNTER → 2019-05-28 10:07 | Outpatient (CLI) | payer MEDICAID, SELFPAY ==
[2019-05-28 08:13] VITALS: BMI 34.3
--- NOTE | 2019-05-28 10:13 | RAD_ITS ---
STUDY: X-RAY - RIGHT KNEE REASON FOR EXAM: Female, 39 years old. INCREASING KNEE PAIN AROUND MEDIAL PATELLA AREA TECHNIQUE: 4 view(s) of the knee. COMPARISON: None. FINDINGS: Small degenerative spurring along the medial femoral condyle. Small degenerative spurring along the medial and lateral tibial plateaus. Normal proximal tibiofibular articulation. Normal medial femorotibial compartment. Normal lateral femorotibial compartment. Normal patellofemoral articulation. The soft tissue structures are unremarkable. RAD/Knee 4 or More Views IMPRESSION: Mild degree of degenerative spurring. Electronically Signed: Kishor Woods, at 13:25 EDT , Service support ,
== END ==
PROVIDERS: PCP Family Medicine; Referring Provider Orthopaedic Surgery; Visit Provider Orthopaedic Surgery
DX: M25.561 Pain in right knee (principal)
CPT/HCPCS: 73564

== ENCOUNTER → 2019-06-23 06:35 | Outpatient (CLI) | payer MEDICAID, SELFPAY ==
[2019-05-28 08:13] VITALS: BMI 34.3
--- NOTE | 2019-06-23 06:36 | MRI_ITS ---
STUDY: MRI RIGHT KNEE REASON FOR EXAM: Right knee pain under the patella, 2 prior surgeries. TECHNIQUE: Standardized fat and water weighted pulse sequences were obtained in all 3 orthogonal planes. COMPARISON: Radiographs 05/28/2019 and MRI images 08/29/2016. FINDINGS: Normal medial meniscus. There is interval development of a focal chondral defect of the medial femoral condyle (T2 sagittal image 17) measuring 0.5 cm in AP dimension with bone edema (T2 sagittal images 16-19). Normal medial collateral ligamentous complex (MCL). Normal distal semimembranosus, gracilis and semitendinosus tendons. There is no demonstrated lateral meniscal tear. There is a healed osteochondral lesion of the posterior lateral femoral condyle (proton density sagittal image 15). Normal proximal tibiofibular articulation. Normal lateral collateral (fibular) ligament. Normal popliteus tendon. Normal biceps femoris tendon. Normal anterior cruciate ligament (ACL). Normal posterior cruciate ligament (PCL). Normal congruent patellofemoral articulation. There is high-grade chondromalacia of the patellofemoral compartment (T2 sagittal images 9-10), similar to the prior study with subchondral cystic change. Normal medial and lateral patellar retinaculum. Normal visualized quadriceps tendon. Normal patellar tendon. There is postoperative scarring in Hoffa''s fat pad. There is a small joint effusion. There are intra-articular bodies posterior to the root of the posterior horn of the medial meniscus (T2 coronal image 11) as on the prior study. The soft tissues are unremarkable. There is a small cyst in the proximal tibia near the insertion site of the posterior cruciate ligament. MRI/Lower Ext Joint Only (Routine) IMPRESSION: Interval development of a focal chondral defect of the medial femoral condyle with bone edema. Healed osteochondral lesion of the lateral femoral condyle. High-grade chondromalacia of the patellofemoral compartment. Small joint effusion. Posterior intra-articular bodies. No demonstrated tear of the visualized quadriceps tendon. Electronically Signed: Ernie Sher MD at 8:01 EDT Tel , Service support ,
== END ==
PROVIDERS: PCP Family Medicine; Referring Provider Orthopaedic Surgery; Visit Provider Orthopaedic Surgery
DX: S80.01XA Contusion of right knee, initial encounter (principal); M25.561 Pain in right knee; M22.40 Chondromalacia patellae, unspecified knee
CPT/HCPCS: 73721

== ENCOUNTER 2019-07-08 03:14 | Emergency (ER) | payer MEDICAID, SELFPAY ==
[2019-07-02 09:12] VITALS: BMI 34.3
[2019-07-08 03:15] VITALS: BP 137/78; PULSE 95; RESP 16; TEMP 36.8; O2SAT 100; BMI 35.4
--- NOTE | 2019-07-08 03:24 | RAD_ITS ---
STUDY: X-RAY CHEST REASON FOR EXAM: Female, 39 years old. Cough -- hx of asthma TECHNIQUE: Single AP portable view of the chest. COMPARISON: 03/22/2018 FINDINGS: The lungs are clear and expanded. There is no demonstrated pleural abnormality. Normal size heart. Normal mediastinum and leslie. Normal visualized pulmonary arteries. Normal visualized aortic arch and descending thoracic aorta. Normal visualized thoracic spine. Normal visualized ribs, clavicles, and shoulders. There is no demonstrated abnormality of the visualized soft tissue structures of the upper abdomen. RAD/Chest 1 View (Portable) IMPRESSION: No acute cardiopulmonary disease. No significant interval change. Electronically Signed: Christine Florian MD at 3:54 EDT , Service support ,
--- NOTE | 2019-07-08 03:25 | ED.DCSUM_ITS ---
History of Present Illness Chief Complaint: Cough Informant: Patient Onset: Days Context: Gradual Onset Current Severity: Moderate Maximum Severity: Moderate Narrative: Patient presents with cough and congestion for the past 2 or 3 days. She does report some wheezing. She reports facial pressure and yesterday had some ear pain. She has not had fever but does report some chills. She denies history of exposure to anyone with Covid. She does report having bad seasonal allergies this time of year. - Past Medical History (1) Asthma Status: Chronic Past Medical History - Allergies and Home Meds Allergies/Adverse Reactions: Allergies Penicillins Allergy (Verified 07/08/19 03:17) Hives Primary Care Physician: David Sandoval MD [Primary Care Provider] - Prior records reviewed: Yes Surgical History: noncontributory Smoking Status: Former smoker Review of Systems General: Reports: Chills. Denies: Fever Eyes: Denies: Visual changes - bilaterally ENT: Reports: Bilateral ear pain, Sore throat, - - Sinus pressure Cardiovascular: Denies: Chest pain Respiratory: Reports: Dyspnea, Cough, Sputum - Occasional clear sputum production Gastrointestinal: Denies: Abdominal pain, Nausea, Vomiting, Diarrhea Genitourinary: Denies: Dysuria Musculoskeletal: Denies: Swelling, Extremity Pain Skin: Denies: Rash Neurological: Denies: Headache Hematologic: Denies: Easy bruising, Easy bleeding Allergy: Denies: Uticaria Physical Exam Vital Signs/Narrative: Vital Signs Temp Pulse Resp BP Pulse Ox 07/08/19 03:15 98.2 F 95 16 137/78 H 100 Inital Vital Signs reviewed: Yes General: Well nourished, Well developed Head: Normocephalic Eyes: Perrl, EOMI ENT: Moist mucous membranes, Sinus tenderness Neck: Supple Cardiovascular: Regular rate, Regular rhythm Respiratory: Decreased Air Movement Abdomen: Soft, Nontender Back: Nontender Extremities: Nontender Skin: Normal color Neurological: Alert, Oriented x3 Psychological: Normal affect Diagnostic/Tx/Re-eval Impressions Chest X-Ray 07/08/19 03:24 IMPRESSION: No acute cardiopulmonary disease. No significant interval change. Electronically Signed: Christine Florian MD at 3:54 EDT , Service support , 07/08/19 03:24 Chest 1 View (Portable) [RAD] Stat - Medical Decision Making Patient was given prednisone, Robitussin-AC, and for possible albuterol with a spacer. On repeat evaluation lung sounds are improved with better air movement throughout. Chest x-ray does not reveal infiltrate. Patient does have a lot of sinus pressure however will be covered with a course of Zithromax. Prescriptions will be sent to [facility] for her. ED Disposition - Plan for ED Patient: Disposition: Home or Assisted Living Diagnosis: Bronchitis, Sinusitis Instructions: ED Sinusitis Antibiotic Treatment, ED Upper Resp Infec Abx Tx Prescriptions: Prednisone [Deltasone] 40 mg PO DAILY #10 tab Transmission Status: Pending to [facility] #30 Guaifenesin/Codeine [Robitussin AC] 5 ml PO Q6H PRN PRN #60 mls PRN Reason: Cough Transmission Status: Sent to [facility] #30 Azithromycin [Zithromax Z-Eduardo] 250 mg PO UD #1 box Transmission Status: Pending to [facility] #30 Referrals: David Sandoval MD [Primary Care Provider] - 1 Week if not improving
[2019-07-08] MEDS: guaiFENesin/Codeine 5 ML UDC PO (03:51)
[2019-07-08] MEDS: INHALER, ASSIST DEVICES 1 EACH SPACER INHALATION (03:51)
[2019-07-08] MEDS: predniSONE 20 MG Tablet 60 MG PO (03:51)
[2019-07-08 04:09] VITALS: BP 140/77; PULSE 89; RESP 18; O2SAT 100
== END 2019-07-08 04:14 | disposition home or self-care (01) ==
LOC: ED 04:09
PROVIDERS: Emergency Provider Emergency Medicine; PCP Family Medicine
DX: J40 Bronchitis, not specified as acute or chronic (principal); J32.9 Chronic sinusitis, unspecified; J45.909 Unspecified asthma, uncomplicated; Z87.891 Personal history of nicotine dependence; Z88.0 Allergy status to penicillin
CPT/HCPCS: 71045; 94640; 99282

== ENCOUNTER 2019-07-10 12:53 | Emergency (ER) | payer MEDICAID, SELFPAY ==
[2019-07-10 12:54] VITALS: BP 123/82; PULSE 90; PULSE 97; RESP 18; TEMP 36.6; O2SAT 100; O2SAT 97; BMI 35.0
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
--- NOTE | 2019-07-10 13:19 | ED.DCSUM_ITS ---
- ER Visit Summary Date of Service: 07/10/19 Chief Complaint: Shortness of breath History of Present Illness: The patient is a 39 F who presents with shortness of breath that has been getting worse over the past 2 days. Patient went to an urgent care was diagnosed with bronchitis. Patient was given a prescription for prednisone and Zithromax. Patient states she has taken this for 2 days and is not any better. Patient states she has sharp pain in both sides of her ribs and in her thoracic paraspinal areas. Patient states this is worse with movement and deep breathing. Patient states she is coughing up some thick white sputum. Patient also admits to a sore throat. Physical Examination: Vital signs are stable. Patient is afebrile. Patient is in no acute distress. Oral mucosa is pink and moist. Neck is supple. Trachea is midline. There is no JVD. Heart was regular rate and rhythm. Lungs are diminished bilaterally. There are few rales in the bases bilaterally. Abdomen is soft. Bowel sounds are normal. There is no tenderness. Cranial nerves II through XII are intact. There are no focal motor or sensory deficits noted. Extremities are intact. There is no calf tenderness or edema. Test Results: Chest x-ray was obtained. There is no acute cardiopulmonary process. This is interpreted by the radiologist and myself. Rapid flu and RSV swabs were obtained and were negative. Rapid strep was ordered and is pending. CBC and metabolic profile were ordered and are pending. Emergency Department Course and Treatment: Patient was given a DuoNeb aerosol here. Patient states she has not noticed much improvement with this. Patient states she wants to go home and does not want to stay here any longer. Patient was advised that her labs are pending. Patient was advised of the risks and benefits from leaving prior to completion of treatment. Patient understands the risks and will sign out AGAINST MEDICAL ADVICE. Disposition: Discharge AGAINST MEDICAL ADVICE Impression: 1. Acute bronchitis 2. Asthma exacerbation This note was generated with [employer] software. It may contain incorrect words, spelling, and punctuation that were not noted in review of the chart prior to signing ED Disposition - Plan for ED Patient: Disposition: Home or Assisted Living Diagnosis: Bronchitis, Asthma exacerbation Instructions: ED Bronchitis Asthmatic Referrals: David Sandoval MD [Primary Care Provider] - 3-5 Days
[2019-07-10 13:27] VITALS: BP 123/82; PULSE 97; RESP 18; TEMP 36.6; O2SAT 100
[2019-07-10 13:30] VITALS: PULSE 96; RESP 18
[2019-07-10] MEDS: Ipratropium/Albuterol Sulfate 3 ML AMPUL.NEB INHALATION (13:56)
[2019-07-10 14:10] VITALS: BP 123/82; PULSE 96; RESP 18; TEMP 36.6; O2SAT 100
[2019-07-10] MEDS: 0.9% Normal Saline 1,000 ML 1000 ML IV (14:10)
[2019-07-10 14:16] LABS: Absolute Lymphocyte Count 2.94 X10^3/uL (0.83-4.51); Absolute Neutrophil Count 5.7 X10^3/uL (2.0-7.7); Basophil# 0.05 X10^3/uL; Basophil% 0.5 % (0-1); Eosinophil# 0.18 X10^3/uL; Eosinophils% 1.9 % (0-5); Hematocrit 42.8 % (37-47); Hemoglobin 13.6 g/dL (12.0-15.0); Lymphocyte # 2.94 X10^3/ul (4.0); Lymphocyte % 31.1 % (19-41); Mean Corp Hgb Conc 31.8 g/dL (32-36); Mean Corpuscular Hgb 29.5 pg (27.0-32.0); Mean Corpuscular Volume 92.8 fL (81-99); Mean Platelet Vol. 10.4 fl (6.2-12.0); Monocyte# 0.54 X10^3/uL; Monocyte% 5.7 % (0-10); NRBC Flagged by Analyzer 0 % (0-5); Neutrophil # 5.68 X10^3/uL (2.7-7.7); Neutrophil % 60.3 % (47-70); Platelet Count 252 K/mm3 (150-450); RBC Distribution Width CV 13.8 % (11.6-14.6); RBC Distribution Width SD 46.7 fl (35.1-43.9); Red Blood Count 4.61 M/mm3 (4.2-5.4); White Blood Count 9.4 K/mm3 (4.4-11.0)
[2019-07-10 14:25] LABS: Internal QC Validated? YES +Cl - CLEAR BKGD; Pregnancy, Serum, hCG Quali. NEGATIVE Negative
[2019-07-10 14:36] LABS: ALB/GLOB Ratio 0.9 RATIO (0.9-2.4); AST(SGOT) 30 U/L (15-37); Alanine Aminotransfer ALT/SGPT 30 U/L (13-56); Albumin, Serum 3.5 g/dL (3.2-5.0); Alkaline Phosphatase 95 U/L (45-117); Anion Gap 6 (5-15); BUN 11 mg/dL (7-18); BUN/Creat Ratio 13.6 RATIO (10-20); Calcium,Total 8.9 mg/dL (8.5-10.1); Chloride 107 mmol/L (98-107); Creatinine, Serum 0.81 mg/dL (0.55-1.02); EST Glomerular Filtration Rate 85 mL/min (>60); Est Glom Filt Rate - Afr Amer 103 mL/min (>60); Estimated Creatinine Clearance 82.12 ml/min; Globulin 4.1 g/dL (2.2-4.2); Glucose 102 mg/dL (74-106); Potassium 4.2 mmol/L (3.5-5.1); Protein, Total 7.6 g/dL (6.4-8.2); Sodium Level 141 mmol/L (136-145)
[2019-07-10 14:44] VITALS: BP 113/49; PULSE 82; RESP 20; O2SAT 97
--- NOTE | 2019-07-10 14:45 | ED.RN ---
THIS NURSE REVIEWED D/C INSTRUCTIONS AND AMA PAPERWORK WITH THE PT. PT RECEIVED A COPY OF THE AMA PAPERWORK. IV D/C. IV CATHETHER INTACT. PT TOLERATED WELL. PT DENIES FURTHER NEEDS OR QUESTIONS AT THIS TIME. PT AMBULATES FROM ON OWN WITHOUT ASSISTANCE FROM STAFF
== END 2019-07-10 14:47 | disposition left against medical advice (07) ==
PROVIDERS: Emergency Provider Emergency Medicine; PCP Family Medicine
DX: J20.9 Acute bronchitis, unspecified (principal); J45.901 Unspecified asthma with (acute) exacerbation; E66.9 Obesity, unspecified
CPT/HCPCS: 71045; 80053; 84703; 85025; 87804; 87807; 94640; 96360; 99283; J7030

== ENCOUNTER → 2019-07-16 | Outpatient (CLI) | payer MEDICAID, SELFPAY ==
[2019-07-15 15:39] VITALS: BMI 35.0
== END | disposition home or self-care (01) ==
LOC: LABSPEC 12:10
PROVIDERS: PCP Family Medicine; Referring Provider Nurse Practitioner Primary Care; Visit Provider Nurse Practitioner Primary Care
DX: Z03.818 Encounter for observation for suspected exposure to other biological agents ruled out (principal)
CPT/HCPCS: 87635; C9803; G2023; U0003

== ENCOUNTER 2019-11-15 16:59 | Emergency (ER) | payer MEDICAID, SELFPAY ==
[2019-11-07 15:26] VITALS: BMI 35.0
[2019-11-15 17:00] VITALS: BP 142/79; PULSE 91; RESP 14; TEMP 36.9; O2SAT 100; BMI 33.3
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
[2019-11-15] MEDS: 0.9% Normal Saline 1,000 ML 1000 ML IV (17:43)
[2019-11-15] MEDS: DiphenhydrAMINE 50 MG/ML Syringe 25 MG IV (17:43)
[2019-11-15] MEDS: Ketorolac 30 MG/ML Syringe IV (17:43)
[2019-11-15] MEDS: Metoclopramide 10 MG/2 ML Vial IV (17:43)
[2019-11-15 17:54] LABS: Absolute Lymphocyte Count 2.94 X10^3/uL (0.83-4.51); Absolute Neutrophil Count 4.4 X10^3/uL (2.0-7.7); Basophil# 0.04 X10^3/uL; Basophil% 0.5 % (0-1); Eosinophil# 0.24 X10^3/uL; Eosinophils% 2.9 % (0-5); Hematocrit 42.2 % (37-47); Hemoglobin 13.6 g/dL (12.0-15.0); Lymphocyte # 2.94 X10^3/ul (4.0); Lymphocyte % 35.9 % (19-41); Mean Corp Hgb Conc 32.2 g/dL (32-36); Mean Platelet Vol. 10.4 fl (6.2-12.0); Monocyte# 0.59 X10^3/uL; Monocyte% 7.2 % (0-10); NRBC Flagged by Analyzer 0 % (0-5); Neutrophil # 4.36 X10^3/uL (2.7-7.7); Neutrophil % 53.3 % (47-70); Platelet Count 232 K/mm3 (150-450); RBC Distribution Width SD 45.4 fl (35.1-43.9); Red Blood Count 4.69 M/mm3 (4.2-5.4); White Blood Count 8.2 K/mm3 (4.4-11.0)
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
[2019-11-15 18:05] LABS: Anion Gap 6 (5-15); BUN 12 mg/dL (7-18); BUN/Creat Ratio 12.6 RATIO (10-20); Calcium,Total 8.1 mg/dL (8.5-10.1); Chloride 112 mmol/L (98-107); Creatinine, Serum 0.95 mg/dL (0.55-1.02); EST Glomerular Filtration Rate 70 mL/min (>60); Est Glom Filt Rate - Afr Amer 84 mL/min (>60); Estimated Creatinine Clearance 70.01 ml/min; Glucose 119 mg/dL (74-106); Internal QC Validated? YES +Cl - CLEAR BKGD; Potassium 3.9 mmol/L (3.5-5.1); Pregnancy, Serum, hCG Quali. NEGATIVE Negative; Sodium Level 143 mmol/L (136-145)
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
[2019-11-15 18:55] VITALS: BP 108/65; PULSE 96; RESP 15; O2SAT 100
== END 2019-11-15 18:57 | disposition home or self-care (01) ==
LOC: ED 18:32
PROVIDERS: Emergency Provider Emergency Medicine; PCP Family Medicine
DX: S20.219A Contusion of unspecified front wall of thorax, initial encounter (principal); S09.90XA Unspecified injury of head, initial encounter; R11.2 Nausea with vomiting, unspecified; J45.909 Unspecified asthma, uncomplicated; Z72.0 Tobacco use; Z79.51 Long term (current) use of inhaled steroids; Y04.2XXA Assault by strike against or bumped into by another person, initial encounter; Y93.89 Activity, other specified; Y92.009 Unspecified place in unspecified non-institutional (private) residence as the place of occurrence of the external cause; Y99.8 Other external cause status
CPT/HCPCS: 70450; 71045; 80048; 84703; 85025; 96361; 96374; 96375; 99285; J7030; A4216

== ENCOUNTER 2019-12-10 11:02 | Day surgery (SDC) | payer MEDICAID, SELFPAY ==
[2019-11-07 15:26] VITALS: BMI 35.0
[2019-12-10] VITALS (9 sets, daily range): BP systolic 119–136; BP diastolic 63–92; PULSE 78–96; RESP 16; TEMP 36.2–37.2; O2SAT 99–100; BMI 29.8
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
--- NOTE | 2019-12-10 12:38 | OP.PCM_ITS ---
Report of Operation Date of Procedure: 12/10/19 Pre-Operative Diagnosis: right knee chondral lesion mfc, oa pf joint Post-Operative Diagnosis: same Surgery/Procedure Performed:: yamila marcosartemio chondral defect debridement, microfracture supervisor shuttle preparation: Cipriano Canela Type of Anesthesia:: General Anesthesiologist: Grupo Head Estimated Blood Loss (mL): min Fluids Replaced: 800 cc lr Description of Procedure: Preop note Patient is 39-year-old female known to us in clinic with complains of locking and instability of her right knee had a scope done about 2 years ago pain underneath her kneecap as well in the medial joint line. Risk benefits alternatives were discussed with patient risk include but not limited to blood loss, blood clot, infection, neurovascular, failure procedure, loss of life and loss of limb. We did discuss the fact that she already has pre-existing arthritis and most likely a knee scope as I can provide her much benefit she would like to proceed with a scope versus having to worry about doing a patellofemoral arthroplasty or some else in the future. Operative note Patient seen and examined preoperative area. Right knee was marked. Patient brought to the operating room placed supine the operating table. Signed, anesthesia, antibiotics were administered. Right leg was prepped and draped usual sterile technique with a tourniquet around her upper thigh. All bony prominences well-padded SCDs placed on his contralateral limb. We then marked out our portal placement from her previous portal. The right leg was then elevate exsanguinated tourniquet was raised to a pressure of 275 torr. Timeout was performed. The knee is 11 blade to create a anterolateral portal. Begin our diagnostic arthroscopy.. She had some unstable cartilage pieces on the inferior pole of the patella. She had grade 4 eburnated changes throughout her patella trochlea. The moved to the medial joint line we created anteromedial portal and direct visualization. We probed the medial meniscus which is intact aside probing there is an obvious defect of her medial femoral condyle. Her ACL and PCL were present within the notch. Her lateral femoral condyle lateral tibial plateau and lateral meniscus were intact and stable probing. We gently bring back some unstable pieces of the patella which were quite large. The mid back to medial femoral condyle. We gently debrided back the unstable chondral pieces we then used a curette to create shoulders and then debrided back the calcified cartilage layer. We then brought the microfracture shirt picks on the back table and used varying different angles in order to perform a microfracture of the medial femoral condyle. We then let the water down to ensure that we had good blood from our microfracture sites which we did have. We then elevated we then let the tourniquet down for total working time of 25 minutes. Portals were closed with interrupted 4-0 nylon stitches. Sterile dressings were applied. Patient taught procedure well no complications recovery chance recovery room in stable condition. Postoperative Toe-touch weightbearing right leg 0-30 Follow-up on Sunday with Uriel with Uriel for dressing change and initiation of PT We will give family pictures in 2 weeks Dragon disclaimer This note was generated with [employer] dictation software. It may contain incorrect words, spelling, and punctuation that were not noted in checking the note before signing.
--- NOTE | 2019-12-10 12:38 | DCINST_ITS ---
Discharge Diet: No Restrictions - Toe-touch weightbearing operative extremity, brace may be unlocked while seated 0 to 30 degrees, brace locked in extension during ambulation and at night, follow-up on Sunday for dressing change and brace adjustment with Uriel Wayt, may get incision wet after that time, call with increased pain numbn Discharge Activity: May Not Drive May shower in (days): 1 Ice area for (Minutes): 20 - Every hour while awake. Weight Bearing Status: Weight bearing as tolerated Keep extremity elevated above heart level: Operative Extremity Call your doctor if your incision/area has: Continuous Slow Oozing, Sudden Increased Bleeding, Increased Pain/ Swelling, Increased Redness, Foul Smelling Discharge Call your doctor if you observe: Fever of 101 or Higher, Coldness, Increased Pain, Numbness or Tingling, Change in Color, Calf discomfort Allergies/Adverse Reactions: Allergies Penicillins Allergy (Verified 12/04/19 14:48) Hives Medications to take at Discharge Albuterol Sulfate [Ventolin Hfa] 18 gm IH PRN PRN 03/01/17 Venlafaxine HCl [Venlafaxine HCl ER] 150 mg PO DAILY 04/03/19 busPIRone [Buspar] 15 mg PO BID 04/03/19 Fluticasone Propionate [Flovent Hfa] 2 puff INHALATION DAILY 07/08/19 Ondansetron [Zofran] 8 mg PO Q8H PRN PRN #20 tab 12/10/19 Oxycodone HCl/Acetaminophen [Percocet 5/325] 1 - 2 tab PO Q6H PRN PRN 5 Days #28 tab 12/10/19 The following prescriptions were given: Oxycodone HCl/Acetaminophen [Percocet 5/325] 1 - 2 tab PO Q6H PRN PRN 5 Days #28 tab PRN Reason: Pain Transmission Status: Received by [facility] Ondansetron [Zofran] 8 mg PO Q8H PRN PRN #20 tab PRN Reason: Nausea Transmission Status: Received by [facility] Primary Care Physician: David Sandoval MD [Primary Care Provider] - Test Results: Test results from this visit will be discussed in further detail at your follow- up appointment, if applicable. Please Follow Up With: Sheron Montelongo, DO - [phone]
[2019-12-10] MEDS: Cefazolin 2 GM in 0.9% Normal Saline 100 ML IV (13:20)
[2019-12-10] MEDS: Epinephrine (1 mg/ml) 1 MG/ML VIAL (13:38)
[2019-12-10] MEDS: Bupiv/Epi 0.25% 30 ML Vial (14:06)
[2019-12-10] MEDS: Mupirocin Ointment 22gm Tube 1 APPLIC (14:06)
== END 2019-12-10 17:20 | disposition home or self-care (01) ==
LOC: SDC 11:03 → AC 11:05
PROVIDERS: PCP Family Medicine; Referring Provider Orthopaedic Surgery; Visit Provider Orthopaedic Surgery
PROC: (CPT 29870; principal; 2019-12-10 12:55)
DX: S89.91XA Unspecified injury of right lower leg, initial encounter (principal); S80.01XD Contusion of right knee, subsequent encounter; Z79.1 Long term (current) use of non-steroidal anti-inflammatories (NSAID); Z79.51 Long term (current) use of inhaled steroids; Z79.899 Other long term (current) drug therapy; Z88.0 Allergy status to penicillin; F17.210 Nicotine dependence, cigarettes, uncomplicated; J45.909 Unspecified asthma, uncomplicated; M17.11 Unilateral primary osteoarthritis, right knee
CPT/HCPCS: 01400; 29879; 64447; 87426; C9803; J7120; J2405

== ENCOUNTER 2020-01-31 21:56 | Emergency (ER) | payer MEDICAID, SELFPAY ==
[2020-01-31 21:58] VITALS: BP 126/72; PULSE 90; RESP 18; TEMP 36.5; O2SAT 100; BMI 30.2
--- NOTE | 2020-01-31 22:10 | RAD_ITS ---
FELL 2 DAYS AGO. RIGHT ANTERIOR SHOULDER PAIN. COMPARISON: None FINDINGS: # of images incl. paperwork: 4 XR Shoulder Min 2 Views: Left BONE AND JOINTS: No acute fracture or subluxation. SOFT TISSUES: Unremarkable. No radiopaque foreign body. RAD/Shoulder min 2 Views IMPRESSION: No acute pathology If symptoms persist, repeat study in 10-14 days or sooner if clinically indicate at 2238 Reported and signed by: Ami Ortiz DO Electronically Signed: Ami Ortiz DO at 22:37 EST Tel , Service support ,
--- NOTE | 2020-01-31 22:11 | ED.DCSUM_ITS ---
History of Present Illness Chief Complaint: Upper Extremity Injury Narrative: This patient is a 40-year-old female who presents with right shoulder pain. 2 days ago she was walking down the steps. She was holding onto the railing with her right hand. She slipped and fell and this caused her to jerk her arm. She complains of severe right shoulder pain since that time. No numbness or weakness. She did hit her head. She did not lose consciousness. No headache. She is not anticoagulated. She denies any other injuries to the chest abdomen back or other extremities. She has been alternating Tylenol and ibuprofen without adequate relief. Past Medical History - Allergies and Home Meds Allergies/Adverse Reactions: Allergies Penicillins Allergy (Verified 01/31/20 22:00) Hives Primary Care Physician: David Sandoval MD [Primary Care Provider] - Past Medical History: - - Asthma Surgical History: noncontributory Smoking Status: Former smoker Review of Systems All systems negative except as indicated General: Denies: Fever Eyes: Denies: Visual changes - bilaterally ENT: Denies: Bilateral ear pain Cardiovascular: Denies: Chest pain Respiratory: Denies: Dyspnea Gastrointestinal: Denies: Abdominal pain Musculoskeletal: Reports: Extremity Pain Skin: Denies: Rash Neurological: Denies: Headache Hematologic: Denies: Easy bruising, Easy bleeding Allergy: Denies: Uticaria Physical Exam Vital Signs/Narrative: Vital Signs Temp Pulse Resp BP Pulse Ox 01/31/20 21:58 97.7 F L 90 18 126/72 H 100 Inital Vital Signs reviewed: Yes General: Well nourished Head: Normocephalic Eyes: EOMI ENT: Moist mucous membranes Neck: Supple Cardiovascular: Regular rate Respiratory: No distress Extremities: - - Please see right upper extremity exam and medical decision making as this box has a character limit. Patient has active full range of motion of left upper and bilateral lower extremities without pain Skin: Normal color Neurological: Alert, Oriented x3, - - GCS of 15 with no focal or lateralizing neurological deficits. Psychological: Normal affect Diagnostic/Tx/Re-eval - Medical Decision Making Patient has no tenderness at the right elbow wrist or hand. She has an easily palpable radial pulse with brisk capillary refill normal sensation. Patient has diffuse nonfocal right shoulder tenderness that includes over the area of the clavicle. She cries out on palpation anywhere over the area. She does not have focal bony tenderness. No deformity. She is able to hold the shoulder in 90 degrees of abduction. Patient was given [place] for pain. 3+ view right shoulder x-ray was obtained with 4 images. On my interpretation this shows no acute fracture or dislocation. Two-view x-ray of the right clavicle was obtained. On my interpretation the shows no fracture. Patient was given a prescription for short course of [place] for pain control. Although she has no fracture she was advised of the risk of soft tissue ligamentous or tendinous injury. She was advised on supportive care including rest ice compression elevation. She was given a referral to follow-up with orthopedics if symptoms do not improve. ED Disposition - Plan for ED Patient: Disposition: Home or Assisted Living Diagnosis: Right shoulder pain Instructions: ED Shoulder Sprain Prescriptions: Hydrocodone Bitart/Apap 5-325 [[place] 5MG-325MG] 1 tab PO Q6H PRN PRN 3 Days #12 tab PRN Reason: Pain Prescription Printed Referrals: David Sandoval MD [Primary Care Provider] - Mookie Conn DO [STAFF PHYSICIAN] -
[2020-01-31] MEDS: HYDROcodone Bitartrate/Apap 5/325 Tablet PO (22:15)
--- NOTE | 2020-01-31 22:15 | RAD_ITS ---
FELL 2 DAYS AGO. RIGHT ANTERIOR SHOULDER PAIN. COMPARISON: Chest radiograph on November 15, 2019 FINDINGS: # of images incl. paperwork: 2 XR Clavicle Unilateral: Right BONE AND JOINTS: No acute fracture or subluxation. The acromioclavicular joint is within normal limits however it appears wider than on the prior study. The coracoclavicular joint is maintained. SOFT TISSUES: Unremarkable. No radiopaque foreign body. RAD/Clavicle IMPRESSION: Question grade 1 injury to the right acromioclavicular joint however it is within normal limits as to size but appears slightly wider than on the prior chest radiograph from November 15, 2019. Correlate clinically for pain in this area at 2237 Reported and signed by: Ami Ortiz DO Electronically Signed: Ami Ortiz DO at 22:36 EST Tel , Service support ,
== END 2020-01-31 22:51 | disposition home or self-care (01) ==
LOC: ED 22:47
PROVIDERS: Emergency Provider Emergency Medicine; PCP Family Medicine
DX: M25.511 Pain in right shoulder (principal); J45.909 Unspecified asthma, uncomplicated; Z87.891 Personal history of nicotine dependence; Z88.0 Allergy status to penicillin; W01.198A Fall on same level from slipping, tripping and stumbling with subsequent striking against other object, initial encounter; Y93.9 Activity, unspecified; Y92.89 Other specified places as the place of occurrence of the external cause; Y99.9 Unspecified external cause status
CPT/HCPCS: 73000; 73030; 99283

== ENCOUNTER 2020-02-26 14:20 | Emergency (ER) | payer MEDICAID, SELFPAY ==
[2020-02-26 14:21] VITALS: BP 156/98; PULSE 102; RESP 18; TEMP 36.4; O2SAT 97; BMI 31.0
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
[2020-02-26] MEDS: HYDROcodone Bitartrate/Apap 5/325 Tablet PO (14:51)
[2020-02-26] MEDS: Ondansetron ODT 4 MG Tablet PO (14:52)
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
--- NOTE | 2020-02-26 15:36 | ED.RN ---
pt requesting this rn to fax a sheet to her new job stating that she is excused from work today. this rn informs pt that i can provide her with a work excuse for today but i cannot fax anyting. pt given work excuse to take a picture and text picture per her choice to her boss
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
[2020-02-26 16:03] VITALS: PULSE 76; RESP 18; O2SAT 97
--- NOTE | 2020-02-26 16:04 | ED.RN ---
THIS NURSE REVIEWED D/C INSTRUCTIONS WITH PT. PT VERBALIZED UNDERSTANDING OF INSTRUCTIONS. PT DENIES FURTHER NEEDS OR QUESTIONS AT THIS ITME
== END 2020-02-26 16:05 | disposition home or self-care (01) ==
LOC: ED 15:01
PROVIDERS: Emergency Provider Emergency Medicine; PCP Family Medicine
DX: S06.0X1A Concussion with loss of consciousness of 30 minutes or less, initial encounter (principal); S00.83XA Contusion of other part of head, initial encounter; S20.219A Contusion of unspecified front wall of thorax, initial encounter; Y04.2XXA Assault by strike against or bumped into by another person, initial encounter; Y92.9 Unspecified place or not applicable; Y99.9 Unspecified external cause status; Z87.891 Personal history of nicotine dependence; Z88.0 Allergy status to penicillin
CPT/HCPCS: 70450; 70486; 71111; 99283

== ENCOUNTER 2020-09-22 23:01 | Emergency (ER) | payer MEDICAID, SELFPAY ==
[2020-09-22 23:02] VITALS: BP 131/78; PULSE 92; RESP 18; TEMP 36.1; O2SAT 96; BMI 38.7
[2020-09-22 23:32] VITALS: BP 120/72; PULSE 86; RESP 16; O2SAT 98
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
== END 2020-09-23 01:15 | disposition home or self-care (01) ==
PROVIDERS: Emergency Provider Emergency Medicine; PCP Family Medicine
DX: K04.7 Periapical abscess without sinus (principal); J45.909 Unspecified asthma, uncomplicated; F17.210 Nicotine dependence, cigarettes, uncomplicated; Z90.49 Acquired absence of other specified parts of digestive tract
CPT/HCPCS: 41800; 64999; 99284

== ENCOUNTER 2021-07-18 08:49 | Emergency (ER) | payer MEDICAID, SELFPAY ==
[2021-07-18 08:49] VITALS: BP 136/87; PULSE 92; RESP 16; TEMP 36.8; O2SAT 95; BMI 34.4
--- NOTE | 2021-07-18 09:03 | CT_ITS ---
STUDY: CT ABDOMEN AND PELVIS WITHOUT CONTRAST REASON FOR EXAM: Female, 41 years old. Left flank pain. Hematuria. History of kidney stones. RADIATION DOSAGE (If Supplied By Facility): CTDIvol = ( 14.57 ) mGy, DLP = ( 720.78 ) mGycm TECHNIQUE: Transaxial images were obtained from the dome of the diaphragm to the symphysis pubis without oral contrast, and without intravenous contrast. Sagittal and coronal images were reconstructed. Individualized dose optimization techniques were used for this CT. COMPARISON: Comparison is made with prior study dated 10/09/2018. FINDINGS: The visualized lung bases are unremarkable. The visualized portions of the heart are within normal limits. Normal liver. The patient is status post cholecystectomy. Normal spleen. Normal pancreas. Normal bilateral adrenal glands. Normal right kidney. Normal left kidney. Normal visualized stomach. Normal small intestine. Normal colon. The appendix is visualized and appears normal. Normal abdominal aorta. Normal inferior vena cava. Normal retroperitoneum. Normal urinary bladder. Evidence of prior bilateral tubal ligation. There is a small umbilical hernia containing fat. Normal osseous structures. CT/Abdomen/Pelvis without Cont IMPRESSION: Status post cholecystectomy and bilateral tubal ligation. Electronically Signed: Kishor Woods MD at 10:10 EDT ,
--- NOTE | 2021-07-18 09:17 | EX.ED.DYSGE1 ---
HPI History of Present Illness Chief Complaint: Flank Pain Detail of Chief Complaint: Left flank pain Informant: patient Onset/Context/Timing Onset: Days (3 to 4 days) Context: Gradual Onset Timing: Waxes and wanes Current Severity: Severe Maximum Severity: Severe Narrative Narrative: Patient presents secondary to left flank pain. She states has been having intermittent pain for the past 3 or 4 days. She went to urgent care this morning because her pain was significantly worsened. Blood was noted in her urine. Per her report there was no sign of infection. Last menstrual cycle was 2 weeks ago. She does have a history of kidney stone several years ago. Patient is currently on Vivitrol as part of her recovery. [facility] Medical History (Updated 07/18/21 @ 10:[address] Lynda Caballero MD) Asthma Hepatitis C Home Medications buspirone 15 mg PO BID 07/18/21 [History Last Taken Unknown] ketorolac 10 mg PO Q6H PRN 3 Days #10 tab 07/18/21 [Rx Last Taken Unknown] lithium carbonate 600 mg PO QHS 07/18/21 [History Last Taken Unknown] naltrexone microspheres [Vivitrol] 380 mg IM QMONTH 07/18/21 [History Last Taken Unknown] ondansetron 4 mg PO Q8H PRN #10 tab 07/18/21 [Rx Last Taken Unknown] Allergy/AdvReac Type Severity Reaction Status Date / Time Penicillins Allergy Hives Verified 07/18/21 08:49 Family History Brother Diabetes Hypertension Mother Cervical cancer Father Hypertension Heart disease Surgical History S/P cholecystectomy S/P right knee arthroscopy Social History Smoking Status: Former smoker ROS ROS ED Constitutional Constitutional ED: Denies chills or fever(s) Eyes Eyes: Denies change in vision ENT ENT ED: Denies sore throat Cardiovascular Cardiovascular: Denies chest pain Respiratory/Chest Respiratory/Chest: Denies cough or dyspnea Gastrointestinal Gastrointestinal: Reports abdominal pain; Denies diarrhea, nausea or vomiting Genitourinary Genitourinary ED: Reports hematuria; Denies dysuria Musculoskeletal Musculoskeletal: Reports back pain Integumentary Denies rash Neurologic Neurologic: Denies headache(s) or weakness Allergic/Immunologic Allergic/Immunologic ED: Denies urticaria EXAM Physical Exam Const Vital Signs: 07/18/21 08:49 07/18/21 09:24 Temperature 98.3 F Temperature Source Temporal Pulse Rate 92 Respiratory Rate 16 Respiratory Effort Normal Non-Labored Respiratory Pattern Normal Blood Pressure 136/87 H Blood Pressure Mean 103 Pulse Ox 95 Oxygen Delivery Method Room Air Positive well nourished and well developed General Appearance ED: well developed HEENT Reports moist mucous membranes Eyes PERRL and EOMs intact bilaterally Neck supple Chest Wall inspection of chest normal and palpation of chest normal Resp normal respiratory effort and clear to auscultation bilaterally Cardio regular rate and regular rhythm GI Palpation: soft and tender other (Left-sided abdominal tenderness. No guarding or rebound.) Back/Spine General Back: CVA tenderness left Extremity normal to inspection Neuro oriented x3 Sensorium / Orientation: alert Psych mental status grossly normal Skin no rashes or lesions noted MDM MDM MDM Narrative Medical decision making narrative: Patient is on Vivitrol. In light of this she is given Toradol and Zofran along with IV fluids. Lab work obtained along with CT flank. Lab Data Attestation: I reviewed the patient's lab results. Labs: Laboratory Results - last 24 hr 07/18/21 07/18/21 07/18/21 09:10 09:10 09:10 WBC 9.6 RBC 4.51 Hgb 13.3 Hct 40.7 MCV 90.2 MCH 29.5 MCHC 32.7 RDW Std Deviation 41.7 RDW Coeff of Raine 12.5 Plt Count 230 MPV 10.1 Immature Gran % (Auto) 0.300 Neut % (Auto) 69.0 Lymph % (Auto) 18.6 L Hale % (Auto) 9.7 Eos % (Auto) 1.8 Baso % (Auto) 0.6 Absolute Neuts (auto) 6.6 Absolute Lymphs (auto) 1.78 Nucleated RBC % 0 Sodium 137 Potassium 3.8 Chloride 104 Carbon Dioxide 29.0 Anion Gap 4 L BUN 9 Creatinine 0.87 Estim Creat Clear Calc 78.12 Est GFR (MDRD) Af Amer 93 Est GFR (MDRD) Non-Af 76 BUN/Creatinine Ratio 10.3 Glucose 123 H Calcium 8.9 Serum , Qual NEGATIVE Radiography Diagnostic Testing: Clinical Impression(s) from Imaging Studies Abdomen/Pelvis CT 07/18/21 09:03 IMPRESSION: Status post cholecystectomy and bilateral tubal ligation. Electronically Signed: Kishor Woods MD at 10:10 EDT , Treatment and Re-Evaluation Narrative: On repeat evaluation patient resting much more comfortably. Lab work unremarkable. test negative. CT scan shows no acute changes. With the patient having pain consistent with kidney stone and evidence of hematuria on her urine test I do feel that she likely has either a noncalcified stone or has recently passed a stone and having continued spasm. She specifically tells me that the urinalysis at urgent care did not show any infection. Patient be written for Toradol and Zofran. Return instructions are provided. Discharge Plan Triage Chief Complaint: Flank Pain ED Provider: Lynda Caballero Dx/Rx/DC Orders Clinical Impression: Acute flank pain Instructions: ED Flank Pain, Uncertain Cause Prescriptions: New ketorolac 10 mg tablet 10 mg PO Q6H PRN (Reason: pain) 3 Days Qty: 10 RF: 0 ondansetron 4 mg tablet,disintegrating 4 mg PO Q8H PRN (Reason: nausea and vomiting) Qty: 10 RF: 0 No Action lithium carbonate 300 mg tablet 600 mg PO QHS RF: 0 buspirone 15 mg tablet 15 mg PO BID RF: 0 Vivitrol 380 mg suspension,extended rel recon 380 mg IM QMONTH RF: 0 Primary Care Provider: David Sandoval Referrals: David Sandoval MD [Primary Care Provider] - 3-5 Days if not improving Disposition Disposition: Home, Self Care
[2021-07-18] MEDS: Ondansetron 4 MG/2 ML Vial IV (09:18)
[2021-07-18] MEDS: Ketorolac 30 MG/ML Syringe IV (09:18)
[2021-07-18] MEDS: 0.9% Normal Saline 1,000 ML 1000 ML IV (09:18)
[2021-07-18 09:19] LABS: Absolute Lymphocyte Count 1.78 X10^3/uL (0.83-4.51); Absolute Neutrophil Count 6.6 X10^3/uL (2.0-7.7); Basophil# 0.06 X10^3/uL; Basophil% 0.6 % (0-1); Eosinophil# 0.17 X10^3/uL; Eosinophils% 1.8 % (0-5); Hematocrit 40.7 % (37-47); Hemoglobin 13.3 g/dL (12.0-15.0); Lymphocyte # 1.78 X10^3/ul (0.83-4.51); Lymphocyte % 18.6 % (19-41); Mean Corp Hgb Conc 32.7 g/dL (32-36); Mean Corpuscular Hgb 29.5 pg (27.0-32.0); Mean Corpuscular Volume 90.2 fL (81-99); Mean Platelet Vol. 10.1 fl (6.2-12.0); Monocyte# 0.93 X10^3/uL; Monocyte% 9.7 % (0-10); NRBC Flagged by Analyzer 0 % (0-5); Neutrophil # 6.62 X10^3/uL (2.7-7.7); Platelet Count 230 K/mm3 (150-450); RBC Distribution Width CV 12.5 % (11.6-14.6); RBC Distribution Width SD 41.7 fl (35.1-43.9); Red Blood Count 4.51 M/mm3 (4.2-5.4); White Blood Count 9.6 K/mm3 (4.4-11.0)
[2021-07-18 09:29] LABS: Internal QC Validated? YES +Cl - CLEAR BKGD; Pregnancy, Serum, hCG Quali. NEGATIVE Negative
[2021-07-18 09:31] LABS: Anion Gap 4 (5-15); BUN 9 mg/dL (7-18); BUN/Creat Ratio 10.3 RATIO (10-20); Calcium,Total 8.9 mg/dL (8.5-10.1); Chloride 104 mmol/L (98-107); Creatinine, Serum 0.87 mg/dL (0.55-1.02); EST Glomerular Filtration Rate 76 mL/min (>60); Est Glom Filt Rate - Afr Amer 93 mL/min (>60); Estimated Creatinine Clearance 78.12 ml/min; Glucose 123 mg/dL (74-106); Potassium 3.8 mmol/L (3.5-5.1); Sodium Level 137 mmol/L (136-145)
[2021-07-18 10:25] VITALS: BP 100/56; PULSE 69; RESP 18; O2SAT 100
== END 2021-07-18 10:32 | disposition home or self-care (01) ==
PROVIDERS: Emergency Provider Emergency Medicine; PCP Family Medicine; Visit Provider Emergency Medicine
DX: R10.9 Unspecified abdominal pain (principal); R31.9 Hematuria, unspecified; Z87.891 Personal history of nicotine dependence; J45.909 Unspecified asthma, uncomplicated; Z86.19 Personal history of other infectious and parasitic diseases
CPT/HCPCS: 74176; 80048; 84703; 85025; 96361; 96374; 96375; 99283; J7030; A4216; J2405

== ENCOUNTER → 2021-09-14 | Outpatient (CLI) | payer MEDICAID, SELFPAY ==
[2021-09-14 17:23] LABS: Absolute Lymphocyte Count 3.31 X10^3/uL (0.83-4.51); Absolute Neutrophil Count 3.7 X10^3/uL (2.0-7.7); Basophil# 0.06 X10^3/uL; Basophil% 0.8 % (0-1); Eosinophil# 0.33 X10^3/uL; Eosinophils% 4.2 % (0-5); Hematocrit 41.5 % (37-47); Lymphocyte # 3.31 X10^3/ul (0.83-4.51); Mean Corp Hgb Conc 33.7 g/dL (32-36); Mean Corpuscular Hgb 30.6 pg (27.0-32.0); Mean Corpuscular Volume 90.8 fL (81-99); Mean Platelet Vol. 10.3 fl (6.2-12.0); Monocyte# 0.42 X10^3/uL; Monocyte% 5.3 % (0-10); NRBC Flagged by Analyzer 0 % (0-5); Neutrophil # 3.72 X10^3/uL (2.7-7.7); Neutrophil % 47.1 % (47-70); Platelet Count 234 K/mm3 (150-450); RBC Distribution Width CV 13.4 % (11.6-14.6); Red Blood Count 4.57 M/mm3 (4.2-5.4); White Blood Count 7.9 K/mm3 (4.4-11.0)
[2021-09-14 18:00] LABS: Lithium < 0.20 mmol/L (0.60-1.20)
[2021-09-14 18:04] LABS: ALB/GLOB Ratio 0.8 RATIO (0.9-2.4); AST(SGOT) 45 U/L (15-37); Alanine Aminotransfer ALT/SGPT 95 U/L (13-56); Albumin, Serum 3.3 g/dL (3.2-5.0); Alkaline Phosphatase 92 U/L (45-117); Anion Gap 6 (5-15); BUN 11 mg/dL (7-18); BUN/Creat Ratio 12.6 RATIO (10-20); Calcium,Total 8.4 mg/dL (8.5-10.1); Chloride 106 mmol/L (98-107); Creatinine, Serum 0.87 mg/dL (0.55-1.02); EST Glomerular Filtration Rate 77 mL/min (>60); Est Glom Filt Rate - Afr Amer 93 mL/min (>60); Glucose 143 mg/dL (74-106); Potassium 3.7 mmol/L (3.5-5.1); Protein, Total 7.3 g/dL (6.4-8.2); Sodium Level 138 mmol/L (136-145); T4 Free Direct 1.17 ng/dL (0.76-1.46); Thyroid Stim Hormone (TSH) 1.17 uIU/mL (0.358-3.74)
[2021-09-14 18:34] LABS: HIV - WCH Non-Reactive (Nonreactive); Hepatitis B Surface Antibody Reactive; Hepatitis B Surface Antigen Non-Reactive (Nonreactive); Hepatitis C Antibody Preliminary Reactive (Nonreactive); Vitamin B12 413 pg/mL (211-911); Vitamin D,25 Hydroxy 25.3 ng/mL
[2021-09-16 22:07] LABS: HCV Quant. RNA PCR 44400 IU/mL (.)
[2021-09-17 15:39] LABS: HCV log 10 4.647 (.); Hepatitis A AB, Total Negative (Negative)
== END | disposition home or self-care (01) ==
LOC: LAB 16:13
PROVIDERS: PCP Family Medicine; Visit Provider Registered Nurse
DX: F31.81 Bipolar II disorder (principal); F11.21 Opioid dependence, in remission; F15.21 Other stimulant dependence, in remission; F41.1 Generalized anxiety disorder; F43.12 Post-traumatic stress disorder, chronic
CPT/HCPCS: 36415; 80053; 80178; 82306; 82607; 82746; 83036; 84439; 84443; 85025; 86703; 86706; 86708; 86803; 87340; 87522

== ENCOUNTER → 2021-12-01 | Outpatient (CLI) | payer MEDICAID, SELFPAY ==
[2021-12-01 10:21] LABS: Color, Urine Yellow (Yellow); Glucose, Dipstick Normal (Normal); Ketone-Dipstick 5 mg/dl (Negative); Leukocyte Esterase-Dipstick 25 /ul (Negative); Nitrite-Dipstick Positive (Negative); Occult Blood-Urine Negative /ul (Negative); Protein-Dipstick 15 mg/dl (Negative); Specific Gravity, Urine 1.025 (1.002-1.030); Urine Bilirubin Dipstick Negative (Negative); Urine Clarity Cloudy (Clear); Urine Urobilinogen 1 mg/dl (Normal)
[2021-12-01 11:49] LABS: ALB/GLOB Ratio 0.9 RATIO (0.9-2.4); AST(SGOT) 51 U/L (15-37); Alanine Aminotransfer ALT/SGPT 94 U/L (13-56); Albumin, Serum 3.2 g/dL (3.2-5.0); Alkaline Phosphatase 78 U/L (45-117); Anion Gap 2 (5-15); BUN 10 mg/dL (7-18); BUN/Creat Ratio 12.4 RATIO (10-20); Calcium,Total 8.8 mg/dL (8.5-10.1); Chloride 107 mmol/L (98-107); Creatinine, Serum 0.81 mg/dL (0.55-1.02); EST Glomerular Filtration Rate 83 mL/min (>60); Est Glom Filt Rate - Afr Amer 101 mL/min (>60); Globulin 3.6 g/dL (2.2-4.2); Glucose 94 mg/dL (74-106); Protein, Total 6.8 g/dL (6.4-8.2); Sodium Level 140 mmol/L (136-145); T4 Free Direct 1.27 ng/dL (0.76-1.46)
== END | disposition home or self-care (01) ==
LOC: LAB 09:26
PROVIDERS: PCP Family Medicine; Visit Provider Registered Nurse
DX: F31.81 Bipolar II disorder (principal); F11.21 Opioid dependence, in remission; F15.21 Other stimulant dependence, in remission; F41.1 Generalized anxiety disorder; F43.12 Post-traumatic stress disorder, chronic
CPT/HCPCS: 36415; 80053; 81002; 84439; 84443

== ENCOUNTER → 2022-09-09 | Outpatient (CLI) | payer MEDICAID, SELFPAY ==
--- NOTE | 2022-09-09 10:46 | MRI_ITS ---
STUDY: MRI RIGHT KNEE REASON FOR EXAM: Female, 42 years old. internal derangement right knee, pain TECHNIQUE: Standardized fat and water weighted pulse sequences were obtained in all 3 orthogonal planes. COMPARISON: X-ray of the right knee dated June 28, 2022. MRI of the right knee dated June 23, 2019 FINDINGS: Redemonstration of osteochondral defect in the central to inner aspect of the medial femoral condyle measuring 1.50 cm and associated with mild to moderate subchondral reactive edema, mild cystic changes, high-grade loss of overlying cartilage, but no fragmentation or collapse. The edema was more pronounced and extended up into the metadiaphyseal region of the medial femoral condyle on the current study which has since resolved. Normal medial meniscus. There is diffuse, greater than 50% thickness articular cartilage loss of the medial femorotibial compartment. Normal medial tibial plateau. Normal medial collateral ligamentous complex (MCL). Normal distal semimembranosus, gracilis and semitendinosus tendons. Normal lateral meniscus. There is diffuse, less than 50% thickness articular cartilage loss of the lateral femorotibial compartment. There is interval development of an 8.3 mm osteochondral defect in the central aspect of the lateral femoral condyle, with mild reactive edema and mild to moderate thinning of the overlying cartilage. No serpiginous/avascular signal is seen. Normal lateral tibial plateau. Normal proximal tibiofibular articulation. Mild to moderate joint effusion of the tibiofibular articulation noted. Normal lateral collateral (fibular) ligament. Normal popliteus tendon. Normal biceps femoris tendon. Normal anterior cruciate ligament (ACL). Normal posterior cruciate ligament (PCL). Normal congruent patellofemoral articulation. Full-thickness loss of cartilage and severe narrowing of the lateral patellofemoral compartment with moderate cystic changes and reactive edema on both sides of the articulation. Mild lateral patellar tilt also noted. Moderate cartilage loss in the remaining aspects of the patellofemoral compartment. Normal medial and lateral patellar retinaculum. Normal quadriceps tendon. Normal patellar tendon. Normal Hoffa''s fat pad. There is no joint effusion. The soft tissues are unremarkable. The otherwise visualized osseous structures are unremarkable. MRI/Lower Ext Joint Only (Routine) IMPRESSION: 1. There is interval development of an 8.3 mm osteochondral defect in the central aspect of the lateral femoral condyle, with mild reactive edema and mild to moderate thinning of the overlying cartilage. No serpiginous/avascular signal is seen. 2. Redemonstration of osteochondral defect in the central to inner aspect of the medial femoral condyle measuring 1.50 cm and associated with mild to moderate subchondral reactive edema, mild cystic changes, high-grade loss of overlying cartilage, but no fragmentation or collapse. The edema was more pronounced and extended up into the metadiaphyseal region of the medial femoral condyle on the current study which has since resolved. 3. Full-thickness loss of cartilage and severe narrowing of the lateral patellofemoral compartment with moderate cystic changes and reactive edema on both sides of the articulation. Electronically Signed: Timmy Garrido MD at 13:01 EDT ,
== END | disposition home or self-care (01) ==
LOC: MRI 10:44
PROVIDERS: PCP Family Medicine; Referring Provider Physician Assistant; Visit Provider Physician Assistant
DX: M23.91 Unspecified internal derangement of right knee (principal); M22.41 Chondromalacia patellae, right knee
CPT/HCPCS: 73721

== ENCOUNTER 2023-01-18 23:05 | Emergency (ER) | payer SELFPAY ==
[2023-01-18 23:06] VITALS: BP 140/61; PULSE 86; RESP 16; TEMP 36.6; O2SAT 100; BMI 38.0
--- NOTE | 2023-01-18 23:29 | ED.VIS.BACK ---
HPI History of Present Illness Chief Complaint: Back Informant: patient Narrative Narrative: Nontraumatic right lower back pain started 3 weeks ago. Pain worse with movement. No radicular symptoms. No loss of bowel or bladder control. Using Advil last dose or this morning. She had to leave work early. No urinary symptoms. From records note she does have a bad right knee with multiple surgeries however she states recently has not given her any problems. [facility] Medical History Anxiety and depression Asthma Hepatitis C History of drug abuse Migraine Home Medications buspirone 15 mg tablet 15 mg PO BID 07/18/21 [History Last Taken Unknown] naltrexone microspheres 380 mg intramuscular suspension,extended release (Vivitrol) 380 mg IM QMONTH 07/18/21 [History Last Taken Unknown] albuterol sulfate 90 mcg/actuation aerosol inhaler 2 puff inhalation Q6H PRN 09/27/21 [History Last Taken Unknown] fluticasone propionate 110 mcg/actuation HFA aerosol inhaler (Flovent HFA) 1 puff inhalation BID 09/27/21 [History Last Taken Unknown] desvenlafaxine succinate 25 mg tablet,extended release 24 hr (Pristiq) 25 mg PO DAILY 06/28/22 [History Last Taken Unknown] meloxicam 15 mg tablet 15 mg PO DAILY #30 tabs 06/28/22 [Rx Last Taken Unknown] metformin 500 mg tablet,extended release 24 hr 1,000 mg PO BID 10/06/22 [History Last Taken Unknown] diazepam 5 mg tablet 5 mg PO Q8 PRN Muscle Spasm #12 tabs 01/19/23 [Rx Last Taken Unknown] ibuprofen 600 mg tablet 600 mg PO Q6H PRN PRN pain #20 TABLETS 01/19/23 [Rx Last Taken Unknown] Allergy/AdvReac Type Severity Reaction Status Date / Time Penicillins Allergy Hives Verified 01/18/23 23:06 Family History Brother Diabetes Hypertension Hyperlipidemia Mother Cervical cancer Arthritis Hypertension Father Hypertension Heart disease Grandmother Arthritis Diabetes Hypertension Cancer Grandfather Diabetes Myocardial infarction Alzheimer's dementia Aunt Breast cancer Surgical History H/O colposcopy with cervical biopsy History of tubal ligation S/P cholecystectomy S/P right knee arthroscopy Social History Smoking Status: Former smoker Electronic Cigarette Use: without nicotine alcohol intake: never substance use type: former substance user ROS ROS ED Constitutional Constitutional ED: Denies chills, fever(s) or sweats Eyes Eyes: Denies change in vision ENT ENT ED: Denies dysphagia or sore throat Cardiovascular Cardiovascular: Denies chest pain, leg edema, palpitations or racing heartbeat Respiratory/Chest Respiratory/Chest: Denies cough, dyspnea or dyspnea on exertion Gastrointestinal Gastrointestinal: Denies abdominal pain, diarrhea, nausea or vomiting Genitourinary Genitourinary ED: Denies dysuria, hematuria or urinary frequency Musculoskeletal Musculoskeletal: Reports back pain; Denies extremity pain or neck pain Integumentary Denies rash or wounds Neurologic Neurologic: Denies headache(s), paresthesias or weakness EXAM Physical Exam Const Vital Signs: 01/18/23 23:06 Temperature 98 F Temperature Source Temporal Pulse Rate 86 Respiratory Rate 16 Blood Pressure 140/61 H Blood Pressure Mean 87 Pulse Ox 100 Positive well nourished and well developed General Appearance ED: well developed and NAD HEENT Reports moist mucous membranes normocephalic and atraumatic Eyes PERRL, EOMs intact bilaterally and conjunctivae normal General Eye ED: Yes normal appearance of both eyes Neck no lymphadenopathy and supple General: Negative for tenderness Chest Wall Chest: Negative for tenderness Resp normal respiratory effort and normal air movement Effort and Inspection: symmetric chest movement; Negative for respiratory distress Cardio regular rate, regular rhythm and no murmurs Peripheral Pulses: pulses 2+ throughout GI normal to inspection, nondistended, normoactive bowel sounds and non-tender Palpation: Negative for guarding or rebound tenderness present Back/Spine no CVA tenderness Back/Spine Narrative: No midline thoracic lumbar tenderness. Reproducible right paralumbar tenderness. Straight leg test was negative. Extremity normal to inspection General Extremety ED: Negative for edema or tenderness General Extremity: Negative for edema Neuro oriented x3 and no sensory deficits noted Sensorium / Orientation: awake and alert Skin no rashes or lesions noted and no wounds MDM MDM MDM Narrative Medical decision making narrative: Interventions / MDM: Differential diagnosis: Lumbar strain, musculoskeletal injury Diagnosis considered but do not suspect: No cauda equina symptoms. No clinical sciatica. No clinical kidney stones. My EKG interpretation: N/A Imaging independently reviewed and interpreted by myself: N/A External documents reviewed: N/A Test considered but not ordered:N/A ED course: Patient reproducible pain worse with movement. There is tightness tenderness of the right lateral lumbar. No cauda equina symptoms. Straight leg test was negative. She was given ibuprofen and Valium in the ED to help with symptoms. Reevaluation reported minimal improvement, discussed however is muscle skeletal. Will continue symptomatic treatment with NSAIDs and muscle relaxers. Discussed importance to call her PCP for follow-up for potential physical therapy and continued treatment. She understands this. Work note given. All questions were answered. Re-evaluation: stable Disposition discussed with patient/family/significant other: Patient Case discussed with consulting clinician: N/A This note was generated with [employer] dictation software. It may contain incorrect words, spelling, and punctuation that were not noted in checking the note before signing. No clinical sciatica, no clinical Discharge Plan Triage Chief Complaint: Back ED Provider: Elkin Baumann Dx/Rx/DC Orders Clinical Impression: Lumbar strain, Back pain Instructions: ED Back Sprain/Strain Prescriptions: New diazepam [diazepam] 5 mg tablet 5 mg PO Q8 PRN (Reason: Muscle Spasm) Qty: 12 0RF ibuprofen 600 mg tablet 600 mg PO Q6H PRN PRN (Reason: pain) Qty: 20 0RF No Action albuterol sulfate 90 mcg/actuation HFA aerosol inhaler 2 puff inhalation Q6H PRN fluticasone propionate [Flovent HFA] 110 mcg/actuation HFA aerosol inhaler 1 puff inhalation BID desvenlafaxine succinate [Pristiq] 25 mg tablet extended release 24 hr 25 mg PO DAILY meloxicam 15 mg tablet 15 mg PO DAILY Qty: 30 0RF metformin 500 mg tablet extended release 24 hr 1,000 mg PO BID buspirone 15 mg tablet 15 mg PO BID Patient Comments: TAKE 1 TABLET BY MOUTH TWICE DAILY Vivitrol 380 mg suspension,extended rel recon 380 mg IM QMONTH Patient Comments: INJECT 380MG INTRAMUSCULARLY EVERY 4 WEEKS Stand Alone Forms: ED Work / School Excuse Primary Care Provider: David Sandoval Referrals: David Sandoval MD [Primary Care Provider] - 3-5 Days Disposition Disposition: Home, Self Care Discharge Date/Time: 01/19/23 00:34
[2023-01-18] MEDS: Ibuprofen 600 MG Tablet PO (23:33)
[2023-01-18] MEDS: diazePAM 5 MG Tablet PO (23:34)
== END 2023-01-19 00:34 | disposition home or self-care (01) ==
PROVIDERS: Emergency Provider Emergency Medicine; PCP Family Medicine; Visit Provider Emergency Medicine
DX: S39.012A Strain of muscle, fascia and tendon of lower back, initial encounter (principal); Z87.891 Personal history of nicotine dependence; F41.8 Other specified anxiety disorders; Z79.899 Other long term (current) drug therapy; B19.20 Unspecified viral hepatitis C without hepatic coma; J45.909 Unspecified asthma, uncomplicated; Z79.51 Long term (current) use of inhaled steroids; Z90.49 Acquired absence of other specified parts of digestive tract
CPT/HCPCS: 99283

== ENCOUNTER 2023-04-25 20:35 | Emergency (ER) | payer SELFPAY ==
[2023-04-25 20:36] VITALS: BP 105/69; PULSE 76; RESP 16; TEMP 36.5; O2SAT 100; BMI 39.5
[2023-04-25] MEDS: predniSONE 20 MG Tablet 40 MG PO (21:06)
[2023-04-25] MEDS: Orphenadrine 60 MG/2 ML Ampul IM (21:08)
[2023-04-25] MEDS: Ketorolac 30 MG/ML Syringe IM (21:08)
--- NOTE | 2023-04-25 21:15 | RAD_ITS ---
INDICATION: pain EXAMINATION/TECHNIQUE: X-RAY - XR Spine Lumbar 2 or 3 Views COMPARISON: 09/10/2013 FINDINGS: VERTEBRAE: Preserved vertebral body height. No fracture. Minimal grade 1 anterolisthesis of L4 over L5. Preservation of the normal lumbar lordosis. Minimal levoconvex lumbar scoliosis. Facet arthropathy from L3-S1. DISCS: Mild loss of disc space height at L4-5 and L5-S1. INCLUDED ABDOMEN: Included bowel gas pattern is non-obstructive. RAD/Lumbar Spine 2 or 3 Views IMPRESSION: No evidence of lumbar spinal fracture or traumatic malalignment. Mild lumbar spondylosis as described Electronically Signed: Martin Mcclure MD at 21:52 EDT ,
--- NOTE | 2023-04-25 21:25 | EDS_ITS ---
HPI History of Present Illness Chief Complaint: Back Informant: patient Narrative Narrative: Worsening nontraumatic low back pain last couple days been having symptoms for months. No radicular pain down her legs. No weakness or paresthesias. No loss of bowel or bladder control. Radiology however states pain is currently worse. Ibuprofen taken earlier today primary patient of note was seen by myself in January 3 months ago for back pain. Prescribed medicines with some improvement however not fully resolved. She follows with pain management Dr. Martínez, she states she had 1 visit however due to working 2 jobs unable to return. She is recovering addict therefore did not want opiates. There has been no imagings performed of her low back since their symptoms started. Prior similar symptoms: Yes PFSH [facility] Medical History Anxiety and depression Asthma Hepatitis C History of drug abuse Migraine Home Medications buspirone 15 mg tablet 15 mg PO BID 07/18/21 [History Last Taken Unknown] naltrexone microspheres 380 mg intramuscular suspension,extended release (Vivitrol) 380 mg IM QMONTH 07/18/21 [History Last Taken Unknown] albuterol sulfate 90 mcg/actuation aerosol inhaler 2 puff inhalation Q6H PRN 09/27/21 [History Last Taken Unknown] fluticasone propionate 110 mcg/actuation HFA aerosol inhaler (Flovent HFA) 1 puff inhalation BID 09/27/21 [History Last Taken Unknown] desvenlafaxine succinate 25 mg tablet,extended release 24 hr (Pristiq) 25 mg PO DAILY 06/28/22 [History Last Taken Unknown] meloxicam 15 mg tablet 15 mg PO DAILY #30 tabs 06/28/22 [Rx Last Taken Unknown] metformin 500 mg tablet,extended release 24 hr 1,000 mg PO BID 10/06/22 [History Last Taken Unknown] diazepam 5 mg tablet 5 mg PO Q8 PRN Muscle Spasm #12 tabs 01/19/23 [Rx Last Taken Unknown] ibuprofen 600 mg tablet 600 mg PO Q6H PRN PRN pain #20 TABLETS 01/19/23 [Rx Last Taken Unknown] orphenadrine citrate 100 mg tablet,extended release 100 mg PO BID #20 tabs 04/25/23 [Rx Last Taken Unknown] prednisone 20 mg tablet 40 mg (2 x 20 mg) PO DAILY #12 TABLETS 04/25/23 [Rx Last Taken Unknown] Allergy/AdvReac Type Severity Reaction Status Date / Time Penicillins Allergy Hives Verified 04/25/23 20:38 Family History Brother Diabetes Hypertension Hyperlipidemia Mother Cervical cancer Arthritis Hypertension Father Hypertension Heart disease Grandmother Arthritis Diabetes Hypertension Cancer Grandfather Diabetes Myocardial infarction Alzheimer's dementia Aunt Breast cancer Surgical History H/O colposcopy with cervical biopsy History of tubal ligation S/P cholecystectomy S/P right knee arthroscopy Social History Smoking Status: Former smoker Electronic Cigarette Use: without nicotine alcohol intake: never substance use type: former substance user ROS ROS ED Constitutional Constitutional ED: Denies chills, fever(s) or sweats Eyes Eyes: Denies change in vision ENT ENT ED: Denies dysphagia or sore throat Cardiovascular Cardiovascular: Denies chest pain, leg edema, palpitations or racing heartbeat Respiratory/Chest Respiratory/Chest: Denies cough, dyspnea or dyspnea on exertion Gastrointestinal Gastrointestinal: Denies abdominal pain, diarrhea, nausea or vomiting Genitourinary Genitourinary ED: Denies dysuria, hematuria or urinary frequency Musculoskeletal Musculoskeletal: Reports back pain; Denies extremity pain or neck pain Integumentary Denies rash or wounds Neurologic Neurologic: Denies headache(s), paresthesias or weakness EXAM Physical Exam Const Vital Signs: 04/25/23 20:36 04/25/23 21:55 Temperature 97.7 F L Temperature Source Temporal Pulse Rate 76 64 Respiratory Rate 16 16 Blood Pressure 105/69 125/65 H Blood Pressure Mean 81 85 Pulse Ox 100 99 Oxygen Delivery Method Room Air Room Air Positive well nourished and well developed General Appearance ED: well developed HEENT Reports moist mucous membranes normocephalic and atraumatic Eyes PERRL, EOMs intact bilaterally and conjunctivae normal General Eye ED: Yes normal appearance of both eyes Neck no lymphadenopathy and supple General: Negative for tenderness Chest Wall Chest: Negative for tenderness Resp normal respiratory effort and normal air movement Effort and Inspection: symmetric chest movement; Negative for respiratory distress Cardio regular rate, regular rhythm and no murmurs Peripheral Pulses: pulses 2+ throughout GI normal to inspection, nondistended, normoactive bowel sounds and non-tender Palpation: Negative for guarding or rebound tenderness present Back/Spine no CVA tenderness Back/Spine Narrative: Tenderness mid lumbar with no step-offs. No erythema. 2+ patellar reflex bilaterally. Straight leg test negative. Extremity normal to inspection General Extremety ED: Negative for edema or tenderness General Extremity: Negative for edema Neuro oriented x3 and no sensory deficits noted Sensorium / Orientation: awake and alert Skin no rashes or lesions noted and no wounds MDM MDM MDM Narrative Medical decision making narrative: Interventions / MDM: Differential diagnosis: Lumbar strain, disc hernia Diagnosis considered but do not suspect: No cauda equina symptoms. My EKG interpretation: N/A Imaging independently reviewed and interpreted by myself: Lumbar spine 3 views: Degenerative changes lower spine, mild anterolisthesis L4-L5. Also read by radiology. External documents reviewed: N/A Test considered but not ordered:N/A ED course: Reproducible pain. No radicular pain. No cauda equina symptoms. Treat symptomatic Toradol and Norflex steroids. Will obtain imaging studies as none has been obtained since symptoms started. 2229: X-ray my degenerative changes with mild anterolisthesis. Discussed findings with the patient. More comfortable on reevaluation. She has Motrin at home for which she takes 600 mg every 6 hours as needed. Steroids for additional 6 days. Muscle relaxer as needed. Discussed following up with pain doctor as she has had first visit for further outpatient treatment options. All questions were answered. Re-evaluation: stable Disposition discussed with patient/family/significant other: Patient Case discussed with consulting clinician: N/A This note was generated with [employer] dictation software. It may contain incorrect words, spelling, and punctuation that were not noted in checking the note before signing. Radiography Diagnostic Testing: Clinical Impression(s) from Imaging Studies Lumbar Spine X-Ray 04/25/23 21:15 IMPRESSION: No evidence of lumbar spinal fracture or traumatic malalignment. Mild lumbar spondylosis as described Electronically Signed: Martin Mcclure MD at 21:52 EDT Reading Location ID and State: [facility] / [place] Tel , Service support , Discharge Plan Triage Chief Complaint: Back ED Provider: Elkin Baumann Dx/Rx/DC Orders Clinical Impression: Acute exacerbation of chronic low back pain Instructions: ED Back and Neck Pain, General Prescriptions: New orphenadrine citrate 100 mg tablet extended release 100 mg PO BID Qty: 20 0RF prednisone 20 mg tablet 40 mg PO DAILY Qty: 12 0RF No Action albuterol sulfate 90 mcg/actuation HFA aerosol inhaler 2 puff inhalation Q6H PRN fluticasone propionate [Flovent HFA] 110 mcg/actuation HFA aerosol inhaler 1 puff inhalation BID desvenlafaxine succinate [Pristiq] 25 mg tablet extended release 24 hr 25 mg PO DAILY meloxicam 15 mg tablet 15 mg PO DAILY Qty: 30 0RF metformin 500 mg tablet extended release 24 hr 1,000 mg PO BID buspirone 15 mg tablet 15 mg PO BID Patient Comments: TAKE 1 TABLET BY MOUTH TWICE DAILY Vivitrol 380 mg suspension,extended rel recon 380 mg IM QMONTH Patient Comments: INJECT 380MG INTRAMUSCULARLY EVERY 4 WEEKS diazepam [diazepam] 5 mg tablet 5 mg PO Q8 PRN (Reason: Muscle Spasm) Qty: 12 0RF ibuprofen 600 mg tablet 600 mg PO Q6H PRN PRN (Reason: pain) Qty: 20 0RF Stand Alone Forms: ED Work / School Excuse Primary Care Provider: David Sandoval Referrals: Ashley Martínez MD [Med Staff - Active Staff] - 3-5 Days David Sandoval MD [Primary Care Provider] - Activity Restrictions/Additional Instructions: Lumbar x-ray degenerative changes lower lumbar spine, mild anterolisthesis L4- L5. Continue ibuprofen 60 mg every 6 hours. Take steroids as prescribed. Muscle exercise needed. Follow-up with Dr. Martínez. Disposition Disposition: Home, Self Care
[2023-04-25 21:55] VITALS: BP 125/65; PULSE 64; RESP 16; O2SAT 99
[2023-04-25 22:39] VITALS: BP 124/71; PULSE 60; RESP 16; TEMP 35.7; O2SAT 98
== END 2023-04-25 22:47 | disposition home or self-care (01) ==
PROVIDERS: Emergency Provider Emergency Medicine; PCP Family Medicine; Visit Provider Emergency Medicine
DX: M54.50 Low back pain, unspecified (principal); Z87.891 Personal history of nicotine dependence; G89.29 Other chronic pain; F41.8 Other specified anxiety disorders; Z79.899 Other long term (current) drug therapy; B19.20 Unspecified viral hepatitis C without hepatic coma; J45.909 Unspecified asthma, uncomplicated; Z79.51 Long term (current) use of inhaled steroids; Z98.51 Tubal ligation status; Z90.49 Acquired absence of other specified parts of digestive tract
CPT/HCPCS: 72100; 96372; 99282

== ENCOUNTER 2023-10-23 15:44 | Emergency (ER) | payer MEDICAID, SELFPAY ==
[2023-10-23 15:45] VITALS: BP 115/89; PULSE 94; RESP 22; TEMP 36.1; O2SAT 100; BMI 35.8
[2023-10-23] MEDS: 0.9% Normal Saline (1000mL) 1,000 ML 250 ML IV (16:57)
--- NOTE | 2023-10-23 16:57 | CT_ITS ---
STUDY: CT ABDOMEN AND PELVIS WITHOUT CONTRAST REASON FOR EXAM: Female, 43 years old. Kidney Stone RADIATION DOSAGE (If Supplied By Facility): CTDIvol = ( 17.75 ) mGy, DLP = ( 842.55 ) mGycm TECHNIQUE: Transaxial images were obtained from the dome of the diaphragm to the symphysis pubis without oral contrast, and without intravenous contrast. Sagittal and coronal images were reconstructed. Individualized dose optimization techniques were used for this CT. COMPARISON: None. FINDINGS: The visualized lung bases are unremarkable. The visualized portions of the heart are within normal limits. Normal liver. Normal gallbladder and extrahepatic biliary system. Normal spleen. Normal pancreas. Normal bilateral adrenal glands. Normal right kidney. Normal left kidney. Normal visualized stomach. Normal small intestine. Normal colon. The appendix is visualized and appears normal. Normal abdominal aorta. Normal inferior vena cava. Normal retroperitoneum. Normal urinary bladder. Normal visualized uterus. Normal abdominal wall. Normal osseous structures. CT/Abdomen/Pelvis without Cont IMPRESSION: Normal unenhanced CT of the abdomen and pelvis. Electronically Signed: Derek Rubio MD at 18:13 EDT ,
--- NOTE | 2023-10-23 16:57 | EX.ED.DYSGE1 ---
HPI History of Present Illness Chief Complaint: Flank Pain Informant: patient Narrative Narrative: On and off left flank for 4 days however for last 2 hours been constant. Pain rating to the groin. Nausea vomit x 3 since yesterday no hematemesis. Denies dysuria frequency however states when she urinates there is pain in her back. She felt fevers. No chills. No diarrhea. History of kidney stone years ago she thinks it feels similar. There is no intervention at that time. Denies history of gastric ulcers or kidney injury. Allergy to penicillin causing hives. Prior similar symptoms: Yes [facility] Medical History History of drug abuse Anxiety and depression Migraine Hepatitis C Asthma Home Medications ?Medication ?Instructions ?Recorded ?Last Taken ?Type buspirone 15 mg tablet 15 mg PO BID 07/18/21 Unknown History naltrexone microspheres 380 mg 380 mg IM QMONTH 07/18/21 Unknown History intramuscular suspension,extended release (Vivitrol) albuterol sulfate 90 mcg/actuation 2 puff inhalation Q6H PRN 09/27/21 Unknown History aerosol inhaler fluticasone propionate 110 1 puff inhalation BID 09/27/21 Unknown History mcg/actuation HFA aerosol inhaler (Flovent HFA) desvenlafaxine succinate 25 mg 25 mg PO DAILY 06/28/22 Unknown History tablet,extended release 24 hr (Pristiq) meloxicam 15 mg tablet 15 mg PO DAILY #30 tabs 06/28/22 Unknown Rx metformin 500 mg tablet,extended 1,000 mg PO BID 10/06/22 Unknown History release 24 hr diazepam 5 mg tablet 5 mg PO Q8 PRN Muscle Spasm #12 01/19/23 Unknown Rx tabs ibuprofen 600 mg tablet 600 mg PO Q6H PRN PRN pain #20 01/19/23 Unknown Rx TABLETS orphenadrine citrate 100 mg 100 mg PO BID #20 tabs 04/25/23 Unknown Rx tablet,extended release prednisone 20 mg tablet 40 mg (2 x 20 mg) PO DAILY #12 04/25/23 Unknown Rx TABLETS cefdinir 300 mg capsule 300 mg PO Q12H #14 caps 10/23/23 Unknown Rx ibuprofen 600 mg tablet 600 mg PO Q6H PRN PRN pain #20 10/23/23 Unknown Rx TABLETS ondansetron 4 mg disintegrating 4 mg PO Q8H PRN PRN Nausea #10 tabs 10/23/23 Unknown Rx tablet Allergy/AdvReac Type Severity Reaction Status Date / Time Penicillins Allergy Hives Verified 10/23/23 15:47 Family History Brother Diabetes Hypertension Hyperlipidemia Mother Cervical cancer Arthritis Hypertension Father Hypertension Heart disease Grandmother Arthritis Diabetes Hypertension Cancer Grandfather Diabetes Myocardial infarction Alzheimer's dementia Aunt Breast cancer Surgical History History of tubal ligation H/O colposcopy with cervical biopsy S/P right knee arthroscopy S/P cholecystectomy Social History Smoking Status: Current some day smoker tobacco type: cigarettes Electronic Cigarette Use: without nicotine alcohol intake: never substance use type: former substance user ROS ROS ED Constitutional Constitutional ED: Reports fever(s); Denies chills or sweats Eyes Eyes: Denies change in vision ENT ENT ED: Denies dysphagia or sore throat Cardiovascular Cardiovascular: Denies chest pain, leg edema, palpitations or racing heartbeat Respiratory/Chest Respiratory/Chest: Denies cough, dyspnea or dyspnea on exertion Gastrointestinal Gastrointestinal: Reports nausea and vomiting; Denies abdominal pain or diarrhea Genitourinary Genitourinary ED: Denies dysuria, hematuria or urinary frequency Musculoskeletal Musculoskeletal: Reports back pain; Denies extremity pain or neck pain Integumentary Denies rash or wounds Neurologic Neurologic: Denies headache(s), paresthesias or weakness EXAM Physical Exam Const Vital Signs: 10/23/23 15:45 10/23/23 17:45 10/23/23 19:00 Temperature 97.0 F L 97.8 F Temperature Source Temporal Pulse Rate 94 85 78 Respiratory Rate 22 H 14 18 Blood Pressure 115/89 H 134/66 H 121/66 H Blood Pressure Mean 97 88 84 Pulse Ox 100 98 99 Oxygen Delivery Method Room Air Room Air Positive well nourished and well developed Constitutional Narrative: Nontoxic, appears uncomfortable. General Appearance ED: well developed HEENT HEENT Narrative: Mild dry mucosal membranes normocephalic and atraumatic Eyes EOMs intact bilaterally and conjunctivae normal General Eye ED: Yes normal appearance of both eyes Neck no lymphadenopathy and supple General: Negative for tenderness Chest Wall Chest: Negative for tenderness Resp normal respiratory effort and normal air movement Effort and Inspection: symmetric chest movement; Negative for respiratory distress Cardio regular rate, regular rhythm and no murmurs Peripheral Pulses: pulses 2+ throughout GI normal to inspection, nondistended, normoactive bowel sounds and non-tender GI Narrative: Negative Mays's or McBurney's tenderness. No guarding or rebound. Palpation: Negative for guarding or rebound tenderness present Back/Spine no CVA tenderness and no thoracic nor lumbar tenderness Extremity normal to inspection General Extremety ED: Negative for edema or tenderness General Extremity: Negative for edema Neuro oriented x3 and no sensory deficits noted Sensorium / Orientation: awake and alert Skin no rashes or lesions noted and no wounds MDM MDM MDM Narrative Medical decision making narrative: Interventions / MDM: Differential diagnosis: Complicated UTI Diagnosis considered but do not suspect: Kidney stone, colitis however CT negative. My EKG interpretation: N/A Imaging independently reviewed and interpreted by myself: CT abdomen pelvis: No obstructive or acute process. Also read by radiology External documents reviewed: N/A Test considered but not ordered:N/A ED course: Mild dry mucosal membranes. Renal colic symptoms. Renal stone protocol initiated. IV established, will check labs urine hCG. Zofran, Toradol, morphine. Flank CT ordered for further evaluation. Labs urine with signs of infection white count 11.5. Urine culture sent. CT negative for any kidney stones. Clinically was feeling better. She declines any opiates for home noted history of previous dependence. She started on Omnicef antibiotics for complicated UTI. Prescription for Zofran and ibuprofen written. Return precaution discussed. All questions were answered. Re-evaluation: stable Disposition discussed with patient/family/significant other: Case discussed with consulting clinician: N/A This note was generated with R17 dictation software. It may contain incorrect words, spelling, and punctuation that were not noted in checking the note before signing. Lab Data Attestation: I reviewed the patient's lab results. Labs: Laboratory Results - last 24 hr 10/23/23 10/23/23 16:50 17:10 WBC 11.5 H RBC 5.29 Hgb 14.7 Hct 46.1 MCV 87.1 MCH 27.8 MCHC 31.9 L RDW Std Deviation 41.1 RDW Coeff of Raine 13.1 Plt Count 321 MPV 10.3 Immature Gran % (Auto) 0.300 Neut % (Auto) 58.1 Lymph % (Auto) 31.6 [place] % (Auto) 6.8 Eos % (Auto) 2.6 Baso % (Auto) 0.6 Absolute Neuts (auto) 6.7 Absolute Lymphs (auto) 3.63 Nucleated RBC % 0 Sodium 140 Potassium 3.7 Chloride 105 Carbon Dioxide 30.0 Anion Gap 5 BUN 11 Creatinine 1.00 Estim Creat Clear Calc 82.57 Est GFR (MDRD) Af Amer 78 Est GFR (MDRD) Non-Af 65 BUN/Creatinine Ratio 11.0 Glucose 105 Calcium 9.3 Urine Color Yellow Urine Clarity Clear Urine pH 6.0 Ur Specific Maynard 1.015 Urine Protein 15 H Urine Glucose (UA) Normal Urine Ketones Negative Urine Occult Blood 10 H Urine Nitrite Negative Urine Bilirubin Negative Urine Urobilinogen Normal Ur Leukocyte Esterase 100 H Urine RBC 0-5 SEEN Urine WBC 10-25 SEEN Ur Squamous Epith Cells 0-5 SEEN Urine Bacteria 1+ Urine Mucus 0 SEEN Urine Test Negative Radiography Diagnostic Testing: Clinical Impression(s) from Imaging Studies Abdomen/Pelvis CT 10/23/23 16:57 IMPRESSION: Normal unenhanced CT of the abdomen and pelvis. Electronically Signed: Derek Rubio MD at 18:13 EDT , Discharge Plan Triage Chief Complaint: Flank Pain ED Provider: Elkin Baumann Dx/Rx/DC Orders Clinical Impression: Complicated urinary tract infection, Acute left flank pain Instructions: ED Pyelonephritis, Female (Adult) Prescriptions: New ibuprofen 600 mg tablet 600 mg PO Q6H PRN PRN (Reason: pain) Qty: 20 0RF ondansetron 4 mg tablet,disintegrating 4 mg PO Q8H PRN PRN (Reason: Nausea) Qty: 10 0RF cefdinir 300 mg capsule 300 mg PO Q12H Qty: 14 0RF No Action albuterol sulfate 90 mcg/actuation HFA aerosol inhaler 2 puff inhalation Q6H PRN fluticasone propionate [Flovent HFA] 110 mcg/actuation HFA aerosol inhaler 1 puff inhalation BID desvenlafaxine succinate [Pristiq] 25 mg tablet extended release 24 hr 25 mg PO DAILY meloxicam 15 mg tablet 15 mg PO DAILY Qty: 30 0RF metformin 500 mg tablet extended release 24 hr 1,000 mg PO BID buspirone 15 mg tablet 15 mg PO BID Patient Comments: TAKE 1 TABLET BY MOUTH TWICE DAILY Vivitrol 380 mg suspension,extended rel recon 380 mg IM QMONTH Patient Comments: INJECT 380MG INTRAMUSCULARLY EVERY 4 WEEKS diazepam [diazepam] 5 mg tablet 5 mg PO Q8 PRN (Reason: Muscle Spasm) Qty: 12 0RF ibuprofen 600 mg tablet 600 mg PO Q6H PRN PRN (Reason: pain) Qty: 20 0RF orphenadrine citrate 100 mg tablet extended release 100 mg PO BID Qty: 20 0RF prednisone 20 mg tablet 40 mg PO DAILY Qty: 12 0RF Primary Care Provider: David Sandoval Referrals: David Sandoval MD [Primary Care Provider] - 3-5 Days Activity Restrictions/Additional Instructions: CT scan negative for any kidney stones. Labs white count 11.5 normal creatinine at 1. Urine with infection culture pending. You are being treated for complicated UTI with your left flank pain. Take and finish antibiotic as prescribed. Zofran and ibuprofen as needed. If symptoms worsen not controlled medication, return to the ED for reevaluation. Print Language: Portuguese Disposition Disposition: Home, Self Care Discharge Date/Time: 10/23/23 19:44
[2023-10-23] MEDS: Morphine 4 MG/ML Syringe IV (17:04)
[2023-10-23] MEDS: Ketorolac 15 MG/ML Vial IV (17:04)
[2023-10-23] MEDS: Ondansetron 4 MG/2 ML Vial IV (17:04)
[2023-10-23 17:05] LABS: Absolute Lymphocyte Count 3.63 X10^3/uL (0.83-4.51); Absolute Neutrophil Count 6.7 X10^3/uL (2.0-7.7); Basophil# 0.07 X10^3/uL; Basophil% 0.6 % (0-1); Eosinophils% 2.6 % (0-5); Hematocrit 46.1 % (37-47); Hemoglobin 14.7 g/dL (12.0-15.0); Lymphocyte # 3.63 X10^3/ul (0.83-4.51); Lymphocyte % 31.6 % (19-41); Mean Corp Hgb Conc 31.9 g/dL (32-36); Mean Corpuscular Hgb 27.8 pg (27.0-32.0); Mean Corpuscular Volume 87.1 fL (81-99); Mean Platelet Vol. 10.3 fl (6.2-12.0); Monocyte# 0.78 X10^3/uL; Monocyte% 6.8 % (0-10); NRBC Flagged by Analyzer 0 % (0-5); Neutrophil # 6.66 X10^3/uL (2.7-7.7); Neutrophil % 58.1 % (47-70); Platelet Count 321 K/mm3 (150-450); RBC Distribution Width CV 13.1 % (11.6-14.6); RBC Distribution Width SD 41.1 fl (35.1-43.9); Red Blood Count 5.29 M/mm3 (4.2-5.4); White Blood Count 11.5 K/mm3 (4.4-11.0)
[2023-10-23 17:13] LABS: Mucous, Urine 0 SEEN /hpf (<or=2+)
[2023-10-23 17:16] LABS: Color, Urine Yellow (Yellow); Glucose, Dipstick Normal (Normal); Ketone-Dipstick Negative (Negative); Leukocyte Esterase-Dipstick 100 /ul (Negative); Nitrite-Dipstick Negative (Negative); Occult Blood-Urine 10 /ul (Negative); Protein-Dipstick 15 mg/dl (Negative); Specific Gravity, Urine 1.015 (1.002-1.030); Urine Bilirubin Dipstick Negative (Negative); Urine Clarity Clear (Clear); Urine Urobilinogen Normal (Normal)
[2023-10-23 17:22] LABS: White Blood Cells 10-25 SEEN /hpf (0-5)
[2023-10-23 17:23] LABS: Bacteria 1+ /hpf (None Seen); Internal QC Validated? YES +Cl - CLEAR BKGD; Pregnancy, Urine Negative Negative; Red Blood Cells-Urine 0-5 SEEN /hpf (0-5); Squamous Epithelial Cells - UA 0-5 SEEN /hpf (5-10)
[2023-10-23 17:25] LABS: Anion Gap 5 (5-15); BUN 11 mg/dL (7-18); Calcium,Total 9.3 mg/dL (8.5-10.1); Chloride 105 mmol/L (98-107); EST Glomerular Filtration Rate 65 mL/min (>60); Est Glom Filt Rate - Afr Amer 78 mL/min (>60); Estimated Creatinine Clearance 82.57 ml/min; Glucose 105 mg/dL (74-106); Potassium 3.7 mmol/L (3.5-5.1); Sodium Level 140 mmol/L (136-145)
[2023-10-23 17:45] VITALS: BP 134/66; PULSE 85; RESP 14; O2SAT 98
[2023-10-23 19:00] VITALS: BP 121/66; PULSE 78; RESP 18; TEMP 36.6; O2SAT 99
[2023-10-23] MEDS: Cefdinir 300 MG Capsule PO (19:44)
== END 2023-10-23 19:44 | disposition home or self-care (01) ==
PROVIDERS: Emergency Provider Emergency Medicine; PCP Family Medicine; Visit Provider Emergency Medicine
DX: R10.9 Unspecified abdominal pain (principal); N39.0 Urinary tract infection, site not specified; R11.2 Nausea with vomiting, unspecified; F17.210 Nicotine dependence, cigarettes, uncomplicated; F41.8 Other specified anxiety disorders; Z79.899 Other long term (current) drug therapy; J45.909 Unspecified asthma, uncomplicated; Z79.51 Long term (current) use of inhaled steroids; B19.20 Unspecified viral hepatitis C without hepatic coma; Z98.51 Tubal ligation status; Z90.49 Acquired absence of other specified parts of digestive tract
CPT/HCPCS: 74176; 80048; 81001; 81025; 85025; 87086; 87088; 96361; 96374; 96375; 99282; J7030; A4216; J2405

== ENCOUNTER 2024-01-07 18:50 | Emergency (ER) | payer MEDICAID, SELFPAY ==
[2024-01-07 18:50] VITALS: BP 117/69; PULSE 107; RESP 20; TEMP 36.4; O2SAT 98
--- NOTE | 2024-01-07 19:05 | RAD_ITS ---
EXAM: XR LEFT KNEE, 3 VIEWS CLINICAL INDICATION: FALL TECHNIQUE: Three views of the left knee. COMPARISON: No relevant prior studies available. FINDINGS: BONES/JOINTS: Unremarkable with the exception of mild medial femoral and lateral tibial periarticular spondylosis and asymmetric narrowing of the medial joint compartment. No acute fracture. No subluxation. Normal alignment. Preservation of the joint space. No sclerotic or destructive changes observed. SOFT TISSUES: Unremarkable. No soft tissue swelling or gas. No radiopaque foreign body. RAD/Knee 3 Views IMPRESSION: Mild-moderate multi-compartmental degenerative changes. No convincing acute findings. No visible joint effusion. Electronically Signed: Yelena Sorenson MD at 21:03 EST ,
--- NOTE | 2024-01-07 20:49 | ED.RN ---
radiology called for prolonged knee x-ray read time. Response, It should have been read a long time ago. I will find out.
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
[2024-01-07] MEDS: Ondansetron ODT 4 MG Tablet PO (20:55)
--- NOTE | 2024-01-07 20:55 | ED.RN ---
This RN entered room to give ODT rigo, pt refused [place] pill at this time and stated I have an empty stomach. This RN gave patient Rafia Doone's, saltines, and casandra crackers and told patient pain pill can be given in 20 mins. RN wasted [place] pill with another RN .
--- NOTE | 2024-01-07 21:20 | ED.RN ---
This RN rounding on pt after call light ringing out several times. This RN asked pt if she is still nauseous at this time to which patient showed nurse her puke bag and said yes.
--- NOTE | 2024-01-07 22:10 | ED.RN ---
This RN attempted to give second dose of odt zofran to patient. Pt refused and said Zofran makes her more sick and only would take Phenergan. RN educated pt that doctor is in a procedure and it may be a few minutes until a new medication could be ordered. Pt stated I don't care about that right now, I just want to get the fuck out of here. RN educated pt she is able to leave if wanted but that DR should not be much longer.
--- NOTE | 2024-01-07 23:00 | ED.RN ---
This RN entered room to provide d/c instructions and knee immobilizer. Pt immediately began raising voice and expressing concerns with returning to work and not being able to stand on affected extremity. Pt would not let this RN apply immobilizer. RN asked pt if she asked DR about obtaining crutches, pt stated she didn't because DR barely spoke to her and exited the room. This RN suggested pt follow up with PCP for potential MRI, pt stated she will be calling in the morning. RN suggested to pt having the ER DR to go back into room to talk to patient due to patient being upset. Patient denied and said I won't be waiting another hour. Patient proceeded to tell this RN You suck at your job and need better bedside manner. I want a new nurse. RN exited room at this time and informed charge nurse.
--- NOTE | 2024-01-07 23:07 | ED.RN ---
This nurse in to speak to pt after being made aware by primary nurse that pt is upset. Upon entering room, pt begins yelling at this nurse about how the doctor is a fucking dumb ass the nurse is a rude bitch. This nurse attempts to de-escalate situation and pt refuses to listen and continues to yell. Pt unable to be reasoned with and pt would not stop yelling at nurse long enough for nurse to ask any questions. This nurse left room and pt was wheeled out by family. Pt refused knee brace, stating you, the doctor and this hospital can shove that knee immobilizer up your ass.
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
== END 2024-01-07 23:05 | disposition home or self-care (01) ==
PROVIDERS: Emergency Provider Emergency Medicine; PCP Family Medicine; Visit Provider Emergency Medicine
DX: S80.02XA Contusion of left knee, initial encounter (principal); F17.210 Nicotine dependence, cigarettes, uncomplicated; W22.8XXA Striking against or struck by other objects, initial encounter; F41.8 Other specified anxiety disorders; Z79.899 Other long term (current) drug therapy; J45.909 Unspecified asthma, uncomplicated; Z79.51 Long term (current) use of inhaled steroids; Z98.51 Tubal ligation status; Z90.49 Acquired absence of other specified parts of digestive tract; F17.290 Nicotine dependence, other tobacco product, uncomplicated; R11.2 Nausea with vomiting, unspecified
CPT/HCPCS: 73562; 99282

== ENCOUNTER 2024-03-25 03:11 | Emergency (ER) | payer MEDICAID, SELFPAY ==
[2024-03-25 03:14] VITALS: BP 137/71; PULSE 102; RESP 18; TEMP 36.8; O2SAT 100; O2SAT 98; BMI 33.5
[2024-03-25] MEDS: predniSONE 20 MG Tablet 40 MG PO (04:00)
[2024-03-25 04:13] VITALS: PULSE 108; RESP 18
[2024-03-25] MEDS: Albuterol 2.5 MG/3 ML VIAL.NEB. 5 MG INHALATION (04:13)
[2024-03-25] MEDS: Ipratropium/Albuterol Sulfate 3 ML AMPUL.NEB INHALATION (04:13)
--- NOTE | 2024-03-25 04:14 | EDS_ITS ---
HPI History of Present Illness Chief Complaint: Cough Narrative Narrative: Chief complaint and HPI: Cough. 44-year-old female with past medical history of asthma, opiate abuse on Suboxone, tobacco abuse presents for evaluation of cough. Cough has been ongoing for 1 week. Patient endorses green sputum. States she has been taking her maintenance inhaler as well as her albuterol as needed. Does not have nebulizers. Associated symptom is congestion. Denies any fever, shortness of breath, chest pain, abdominal pain, nausea, vomiting. Review of systems: See HPI Medications: As listed on the chart Allergies: As listed on the chart PFSH: Per chart Vital signs: As listed on the chart. Reviewed. Physical exam: Gen: A&O x3, NAD Head: Normocephalic, atraumatic Eyes: No sclera icterus, conjunctiva clear ENT: Moist mucous membranes Neck: Trachea midline, No JVD CV: RRR, no murmurs, no peripheral edema Resp: Lungs CTA BL, expiratory wheeze, + productive cough GI: Abd soft, non-distended, non-tender, no r/r/g Musc: Full ROM, no deformity Skin: Warm, dry Neuro: Alert, oriented, grossly intact, sensation intact Psych: Cooperative, appropriate mood and affect [facility] Medical History History of drug abuse Anxiety and depression Migraine Hepatitis C Asthma Home Medications ?Medication ?Instructions ?Recorded ?Last Taken ?Type buspirone 15 mg tablet 15 mg PO BID 07/18/21 Unknow n History albuterol sulfate 90 mcg/actuation 2 puff inhalation Q 6H PRN 09/27/21 Unknown History aerosol inhaler bronchospasm fluticasone propionate 110 1 puff inhalation BID 09/27 Unknown History mcg/actuation HFA aerosol inhaler (Flovent HFA) desvenlafaxine succinate 25 mg 25 mg PO DAILY 06/28/22 Unknown History tablet,extended release 24 hr (Pristiq) metformin 500 mg tablet,extended 1,000 mg PO BID 10/06 Unknown History release 24 hr diazepam 5 mg tablet 5 mg PO Q8 PRN Muscle Spasm #12 01/19/23 Unknown Rx tabs ibuprofen 600 mg tablet 600 mg PO Q6H PRN PRN pain # 20 12/15/23 Unknown Rx TABLETS orphenadrine citrate 100 mg 100 mg PO BID #20 tabs Unknown Rx tablet,extended release prednisone 20 mg tablet 40 mg (2 x 20 mg) PO DAILY # 12 04/25/23 Unknown Rx TABLETS cefdinir 300 mg capsule 300 mg PO Q12H #14 caps 10/06 08/28 Unknown Rx ibuprofen 600 mg tablet 600 mg PO Q6H PRN PRN pain # 20 10/23/23 Unknown Rx TABLETS meloxicam 15 mg tablet 15 mg PO DAILY PRN Pain #10 tabs 01/07/24 Unknown Rx ondansetron 4 mg disintegrating 4 mg PO Q8H PRN PRN Na usea #10 tabs 01/07/24 Unknown Rx tablet buprenorphine 8 mg-naloxone 2 mg 1 ea sublingual TID 0 03/25/24 Unknown History sublingual film escitalopram oxalate 10 mg tablet 10 mg PO DAILY depre ssive disorder 03/25/24 Unknown History prednisone 20 mg tablet 40 mg (2 x 20 mg) PO DAILY 5 days 03/25/24 Unknown Rx #10 tabs Allergy/AdvReac Type Severity Reaction Status Date / Time Penicillins Allergy Hives Verified 03/25/24 03:13 Family History Brother Diabetes Hypertension Hyperlipidemia Mother Cervical cancer Arthritis Hypertension Father Hypertension Heart disease Grandmother Arthritis Diabetes Hypertension Cancer Grandfather Diabetes Myocardial infarction Alzheimer's dementia Aunt Breast cancer Surgical History History of tubal ligation H/O colposcopy with cervical biopsy S/P right knee arthroscopy S/P cholecystectomy Social History Smoking Status: Current some day smoker tobacco type: cigarettes Electronic Cigarette Use: without nicotine alcohol intake: never substance use type: former substance user EXAM Physical Exam Const Vital Signs: 03/25/24 03:14 03/25/24 04:13 Temperature 98.3 F Temperature Source Oral Pulse Rate 102 H 108 H Respiratory Rate 18 18 Respiratory Pattern Normal Blood Pressure 137/71 H Blood Pressure Mean 93 Pulse Ox 100 Oxygen Delivery Method Room Air MDM MDM MDM Narrative Medical decision making narrative: 44-year-old female with past medical history of asthma, opiate abuse on Suboxone, tobacco abuse presents for evaluation of cough. Differential diagnosis includes but is not limited to asthma exacerbation, viral illness, influenza, COVID, pneumonia. Breathing treatments and prednisone ordered for symptoms. COVID, flu, RSV and chest x-ray ordered. I do not think any laboratory workup or further imaging is needed at this time. Chest x-ray was personally reviewed by me, ED physician. No pneumonia, effusion, cardiomegaly, pneumothorax. Patient is positive for influenza A. Patient's shortness of breath has improved with breathing treatments. Patient's symptoms are likely secondary to asthma exacerbation from influenza A. She will be prescribed a 5- day course of prednisone. Follow-up with PCP. Albuterol inhaler as needed. Return precautions explained. She confirmed understanding the plan. Patient stable to discharge home. Impression: 1. Asthma exacerbation 2. Influenza A Radiography Diagnostic Testing: Clinical Impression(s) from Imaging Studies Chest X-Ray 03/25/24 05:00 IMPRESSION: NEGATIVE CHEST Reading Location: [facility] Discharge Plan Triage Chief Complaint: Cough ED Provider: Nima Grimes Dx/Rx/DC Orders Clinical Impression: Influenza A, Asthma exacerbation Instructions: ED Asthma, Acute (Adult), ED Influenza (Adult) Prescriptions: New prednisone 20 mg tablet 40 mg PO DAILY 5 Days Qty: 10 0RF Rx Instructions: Start taking on 03/26/2024 No Action albuterol sulfate 90 mcg/actuation HFA aerosol inhaler 2 puff inhalation Q6H PRN (Reason: bronchospasm) fluticasone propionate [Flovent HFA] 110 mcg/actuation HFA aerosol inhaler 1 puff inhalation BID desvenlafaxine succinate [Pristiq] 25 mg tablet extended release 24 hr 25 mg PO DAILY metformin 500 mg tablet extended release 24 hr 1,000 mg PO BID buspirone 15 mg tablet 15 mg PO BID Patient Comments: TAKE 1 TABLET BY MOUTH TWICE DAILY diazepam [diazepam] 5 mg tablet 5 mg PO Q8 PRN (Reason: Muscle Spasm) Qty: 12 0RF ibuprofen 600 mg tablet 600 mg PO Q6H PRN PRN (Reason: pain) Qty: 20 0RF ibuprofen 600 mg tablet 600 mg PO Q6H PRN PRN (Reason: pain) Qty: 20 0RF cefdinir 300 mg capsule 300 mg PO Q12H Qty: 14 0RF escitalopram oxalate 10 mg tablet 10 mg PO DAILY buprenorphine-naloxone 8-2 mg film 1 ea sublingual TID orphenadrine citrate 100 mg tablet extended release 100 mg PO BID Qty: 20 0RF prednisone 20 mg tablet 40 mg PO DAILY Qty: 12 0RF meloxicam 15 mg tablet 15 mg PO DAILY PRN (Reason: Pain) Qty: 10 0RF ondansetron 4 mg tablet,disintegrating 4 mg PO Q8H PRN PRN (Reason: Nausea) Qty: 10 0RF Primary Care Provider: David Sandoval Referrals: David Sandoval MD [Primary Care Provider] - 3-5 Days Activity Restrictions/Additional Instructions: Follow-up with your primary care physician. Return back to the ED if symptoms change or worsen. Start prednisone tomorrow as you received your first dose here in the emergency department. Print Language: Djiboutian Disposition Disposition: Home, Self Care
--- NOTE | 2024-03-25 05:00 | RAD_ITS ---
PROCEDURE: CHEST PA AND LATERAL REASON FOR EXAM: 44-year-old female, cough. TECHNIQUE: Frontal and lateral views of the chest. COMPARISON: Chest radiograph 02/26/2020. FINDINGS: The heart size is normal. The mediastinal contour is unremarkable. The lungs are clear. No focal consolidation, pleural effusion or pneumothorax. The bones are unremarkable. Ornamental jewelry overlying the bilateral breast soft tissue. RAD/Chest PA and Lateral IMPRESSION: NEGATIVE CHEST Reading Location: [id number]
--- NOTE | 2024-03-25 05:11 | CPS ---
[0413] 5mg Albuterol given to pt. in ER
[2024-03-25 05:44] VITALS: BP 130/74; PULSE 89; RESP 18; TEMP 36.8; O2SAT 99
== END 2024-03-25 05:48 | disposition home or self-care (01) ==
PROVIDERS: Emergency Provider Surgery; PCP Family Medicine; Visit Provider Surgery
DX: J45.901 Unspecified asthma with (acute) exacerbation (principal); J10.1 Influenza due to other identified influenza virus with other respiratory manifestations; F17.210 Nicotine dependence, cigarettes, uncomplicated; R05.9 Cough, unspecified; Z87.898 Personal history of other specified conditions; Z79.891 Long term (current) use of opiate analgesic; F41.8 Other specified anxiety disorders; Z79.899 Other long term (current) drug therapy; Z79.51 Long term (current) use of inhaled steroids; Z98.51 Tubal ligation status; Z90.49 Acquired absence of other specified parts of digestive tract
CPT/HCPCS: 71046; 87631; 94640; 99283

== ENCOUNTER 2024-11-18 14:12 | Emergency (ER) | payer MEDICAID, SELFPAY ==
[2024-11-18 14:13] VITALS: BP 124/81; PULSE 84; RESP 16; TEMP 36.9; O2SAT 98; BMI 35.2
--- NOTE | 2024-11-18 15:24 | ED.VIS.BACK ---
HPI History of Present Illness Chief Complaint: Back Informant: patient Narrative Narrative: Patient is a 44-year-old female presenting with worsening low back pain over the past four days. - Reports chronic low back pain, but notes a significant exacerbation in the past four days. - Describes pain as severe, necessitating rolling out of bed due to discomfort. - Pain is localized to the lower back and worsens with movement. - Denies radicular symptoms, emesis, or abdominal pain. No bowel or bladder dysfunction symptoms. 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 - Recent imaging reportedly showed a space in the lumbar region. - Recently recovered from an illness involving coughing, questioning if this could have contributed to the pain. Prior similar symptoms: Yes and With Prior Back Pain [facility] Medical History History of drug abuse Anxiety and depression Migraine Hepatitis C Asthma Home Medications ?Medication ?Instructions ?Recorded ?Last Taken ?Type buspirone 15 mg tablet 15 mg PO BID 07/18/21 Unknown History albuterol sulfate 90 mcg/actuation 2 puff inhalation Q6H PRN 09/27/21 Unknown History aerosol inhaler bronchospasm fluticasone propionate 110 1 puff inhalation BID 09/27/21 Unknown History mcg/actuation HFA aerosol inhaler (Flovent HFA) desvenlafaxine succinate 25 mg 25 mg PO DAILY 06/28/22 Unknown History tablet,extended release 24 hr (Pristiq) metformin 500 mg tablet,extended 1,000 mg PO BID 10/06/22 Unknown History release 24 hr diazepam 5 mg tablet 5 mg PO Q8 PRN Muscle Spasm #12 01/19/23 Unknown Rx tabs ibuprofen 600 mg tablet 600 mg PO Q6H PRN PRN pain #20 01/19/23 Unknown Rx TABLETS orphenadrine citrate 100 mg 100 mg PO BID #20 tabs 04/25/23 Unknown Rx tablet,extended release prednisone 20 mg tablet 40 mg (2 x 20 mg) PO DAILY #12 04/25/23 Unknown Rx TABLETS cefdinir 300 mg capsule 300 mg PO Q12H #14 caps 10/23/23 Unknown Rx ibuprofen 600 mg tablet 600 mg PO Q6H PRN PRN pain #20 10/23/23 Unknown Rx TABLETS meloxicam 15 mg tablet 15 mg PO DAILY PRN Pain #10 tabs 01/07/24 Unknown Rx ondansetron 4 mg disintegrating 4 mg PO Q8H PRN PRN Nausea #10 tabs 01/07/24 Unknown Rx tablet buprenorphine 8 mg-naloxone 2 mg 1 ea sublingual TID 03/25/24 Unknown History sublingual film escitalopram oxalate 10 mg tablet 10 mg PO DAILY depressive disorder 03/25/24 Unknown History prednisone 20 mg tablet 40 mg (2 x 20 mg) PO DAILY 5 days 03/25/24 Unknown Rx #10 tabs cyclobenzaprine 10 mg tablet 10 mg PO TID PRN Muscle Spasm #20 11/18/24 Unknown Rx TABLETS naproxen 500 mg tablet 500 mg PO BID PRN pain #14 tabs 11/18/24 Unknown Rx Allergy/AdvReac Type Severity Reaction Status Date / Time Penicillins Allergy Hives Verified 11/18/24 14:13 Family History Brother Diabetes Hypertension Hyperlipidemia Mother Cervical cancer Arthritis Hypertension Father Hypertension Heart disease Grandmother Arthritis Diabetes Hypertension Cancer Grandfather Diabetes Myocardial infarction Alzheimer's dementia Aunt Breast cancer Surgical History History of tubal ligation H/O colposcopy with cervical biopsy S/P right knee arthroscopy S/P cholecystectomy Social History Smoking Status: Current some day smoker tobacco type: cigarettes Electronic Cigarette Use: without nicotine alcohol intake: never substance use type: former substance user ROS ROS ED Constitutional Constitutional ED: Denies chills or fever(s) Gastrointestinal Gastrointestinal: Denies abdominal pain, constipation, fecal incontinence, nausea or vomiting Genitourinary Genitourinary ED: Reports other Details: no urinary retention ; Denies abdominal discomfort or urinary incontinence Musculoskeletal Musculoskeletal: Reports as per HPI and back pain; Denies neck pain Integumentary Denies rash or wounds Neurologic Neurologic: Denies headache(s), paresthesias or weakness EXAM Physical Exam Const Vital Signs: 11/18/24 14:13 Temperature 98.4 F Temperature Source Oral Pulse Rate 84 Respiratory Rate 16 Blood Pressure 124/81 H Blood Pressure Mean 95 Pulse Ox 98 Oxygen Delivery Method Room Air Positive well nourished and well developed General Appearance ED: well developed and NAD HEENT Negative for trauma or tenderness Eyes PERRL and EOMs intact bilaterally Neck full ROM and supple GI normal to inspection, nondistended, normoactive bowel sounds, soft to palpation and non-tender Back/Spine normal to inspection Lumbar Spine / Lower Back: ROM limited, paraspinal muscle tenderness bilateral and straight leg raise negative bilaterally; Negative for lumbar spinal tenderness Extremity normal to inspection, full ROM and no pedal edema Neuro oriented x3 and no sensory deficits noted Sensorium / Orientation: alert Motor Exam: strength 5/5 throughout and clonus absent Deep Tendon Reflexes: Rt Patellar (L4): 2+, Lt Patellar (L4): 2+, Rt Ankle (S1): 2+ and Lt Ankle (S1): 2+ Deep Tendon Reflexes Back: Rt Patellar (L4): 2+, Lt Patellar (L4): 2+, Rt Ankle (S1): 2+ and Lt Ankle (S1): 2+ Plantar Reflex: Downgoing: bilateral Psych mental status grossly normal and thought process normal Skin no rashes or lesions noted and no wounds MDM MDM MDM Narrative Medical decision making narrative: Assessment: The patient is a 44-year-old female presenting for 4 days of worsening low back pain after repetitive lifting at work. Pain localized to bilateral paraspinal lumbar region without radiation, bowel/bladder changes, or radicular symptoms. Neurologic exam shows normal lower-extremity reflexes; seated straight-leg raise negative bilaterally. Prior lumbar spine X-ray reviewed today demonstrates mild lumbar spondylosis, a chronic finding unlikely to account for the acute pain. Clinical picture most consistent with acute myofascial strain causing muscle spasm and inflammation; low likelihood of disc herniation, radiculopathy, or renal etiology given exam and symptom profile. Plan: - Dispensed NSAID alternative in ED for analgesia - Dispensed oral muscle relaxer in ED - Prescribed short course of NSAID and muscle relaxer for home use - Advised activity modification and proper lifting technique; encouraged ice/heat and topical agents as tolerated - Discharged home in stable condition with return precautions Diagnostics: - Review of prior lumbar spine X-ray: mild lumbar spondylosis, no acute osseous abnormality Diagnoses: Low back pain; Spondylosis without myelopathy or radiculopathy, lumbar region; Acute myofascial strain of lumbosacral region Discharge Plan Triage Chief Complaint: Back ED Provider: Flavio Hackett Dx/Rx/DC Orders Clinical Impression: Acute myofascial strain of lumbosacral region, Spondylosis of lumbar region without myelopathy or radiculopathy Instructions: ED Back Pain (Acute or Chronic) Prescriptions: New cyclobenzaprine 10 mg tablet 10 mg PO TID PRN (Reason: Muscle Spasm) Qty: 20 0RF naproxen 500 mg tablet 500 mg PO BID PRN (Reason: pain) Qty: 14 0RF No Action albuterol sulfate 90 mcg/actuation HFA aerosol inhaler 2 puff inhalation Q6H PRN (Reason: bronchospasm) fluticasone propionate [Flovent HFA] 110 mcg/actuation HFA aerosol inhaler 1 puff inhalation BID desvenlafaxine succinate [Pristiq] 25 mg tablet extended release 24 hr 25 mg PO DAILY metformin 500 mg tablet extended release 24 hr 1,000 mg PO BID buspirone 15 mg tablet 15 mg PO BID Patient Comments: TAKE 1 TABLET BY MOUTH TWICE DAILY diazepam [diazepam] 5 mg tablet 5 mg PO Q8 PRN (Reason: Muscle Spasm) Qty: 12 0RF ibuprofen 600 mg tablet 600 mg PO Q6H PRN PRN (Reason: pain) Qty: 20 0RF ibuprofen 600 mg tablet 600 mg PO Q6H PRN PRN (Reason: pain) Qty: 20 0RF cefdinir 300 mg capsule 300 mg PO Q12H Qty: 14 0RF escitalopram oxalate 10 mg tablet 10 mg PO DAILY buprenorphine-naloxone 8-2 mg film 1 ea sublingual TID prednisone 20 mg tablet 40 mg PO DAILY 5 Days Qty: 10 0RF Rx Instructions: Start taking on 03/26/2024 orphenadrine citrate 100 mg tablet extended release 100 mg PO BID Qty: 20 0RF prednisone 20 mg tablet 40 mg PO DAILY Qty: 12 0RF meloxicam 15 mg tablet 15 mg PO DAILY PRN (Reason: Pain) Qty: 10 0RF ondansetron 4 mg tablet,disintegrating 4 mg PO Q8H PRN PRN (Reason: Nausea) Qty: 10 0RF Primary Care Provider: David Sandoval Referrals: David Sandoval MD [Primary Care Provider, Family Practice] - 1 Week if not improving Activity Restrictions/Additional Instructions: - Take the prescribed anti-inflammatory medication in place of [id number] ibuprofen, following the dosage instructions on the label. - Use the prescribed muscle relaxer at home as needed for muscle spasms; be aware it may cause drowsiness. - Continue applying your lidocaine topical rub or Icy Hot, and use ice or heat on your lower back?whichever feels best for comfort. - Rest your back and avoid repetitive bending or heavy lifting; when you must lift, bend at your knees and use your leg muscles rather than your back. Print Language: Guatemalan Disposition Disposition: Home, Self Care
[2024-11-18] MEDS: Ketorolac 30 MG/ML Syringe IM (15:38)
[2024-11-18 16:01] VITALS: BP 119/74; PULSE 82; RESP 18; TEMP 36.6; O2SAT 99
== END 2024-11-18 16:06 | disposition home or self-care (01) ==
LOC: ED 15:38
PROVIDERS: Emergency Provider Emergency Medicine; PCP Family Medicine; Visit Provider Emergency Medicine
DX: S39.012A Strain of muscle, fascia and tendon of lower back, initial encounter (principal); M47.816 Spondylosis without myelopathy or radiculopathy, lumbar region; F17.210 Nicotine dependence, cigarettes, uncomplicated; F41.8 Other specified anxiety disorders; Z79.899 Other long term (current) drug therapy; J45.909 Unspecified asthma, uncomplicated; Z79.51 Long term (current) use of inhaled steroids; Z79.84 Long term (current) use of oral hypoglycemic drugs; Z98.51 Tubal ligation status; Z90.49 Acquired absence of other specified parts of digestive tract
CPT/HCPCS: 96372; 99282